=== PATIENT | male | born 1965 | race Caucasian/White ===

== ENCOUNTER → 2016-11-29 | Outpatient (CLI) | payer OTHER ==
[2016-11-29 13:47] LABS: Blood Urea Nitrogen 4 mg/dL (9-20); Non-African American GFR(MDRD) >60 (>60 ml/min/1.73 sqM)
--- NOTE | 2016-11-29 16:21 | CT ---
EXAMINATION TYPE: CT ChestAbdPelvis w con DATE OF EXAM: 11/29/2016 2:55 PM COMPARISON: Prior CT chest abdomen pelvis one October 2016 HISTORY: Patient has no complaints at time of study. Follow up study for known lung CA with brain an d liver mets CT DLP: 538.2 mGycm Automated exposure control for dose reduction was used. CONTRAST: CT scan of the chest, abdomen and pelvis is performed with Oral Contrast and with IV Contrast, patien t injected with 100 mL of Omnipaque 300. FINDINGS: LUNGS: The lung mass in the left upper lobe now measures approximately 6.7 x 4.2 x 5.7 cm where as on prior exam measured approximately 6.7 x 4.5 x 6.1 cm. Nodular density is present in the posterior co stophrenic sulcus measuring approximately 5 to 6 mm axial image 36, along the right lower lobe business operations specialist ior laterally there is a suggestion of a 4 to 5 mm nodule in a subpleural location, axial image 35. MEDIASTINUM: Extensive subcarinal, left hilar adenopathy as well as posterior mediastinal, aorticopul monary window nodes. AP dimension and the subcarinal node is 3.7 cm where as on prior it measured yahir roximately 2.2 cm. Left hilar node AP dimension is 2.4 cm where as on previous was approximately 1.7 cm. Aorticopulmonary window node is new measuring 1.7 cm x 1.5 cm x 2.2 cm. Posterior mediastinal nod e adjacent to the thoracic esophagus measures approximately 1.9 x 1.7 x 3.9 cm and on previous measur ed approximately 1.5 x 1.3 x 2.4 cm. AORTA: No significant abnormality is seen. OTHER: No pleural or pericardial effusion. LIVER/GB: There is a hypodense focus present within the right lobe of the liver which is poorly seen on prior exam measuring approximately 8 to 9 mm which now measures 2 cm it shows some peripheral enha ncement. Additional nodule within the lateral segment of the left lobe was not well-seen on prior but measures approximately 13 mm on current exam. Adjacent to the zach there is 4 definition of a previ ously identified low dense focus. Liver overall shows low density, some questionable abnormal soft ti ssue along the ligamentum teres anteriorly is poorly defined as on prior.. Gallbladder is unremarkabl e. PANCREAS: No significant abnormality is seen. SPLEEN: No significant abnormality is seen. ADRENALS: Small nodule associated with the left adrenal gland was not seen on previous exam and measu res approximately 13 mm. Right adrenal nodule was not seen on previous exam and measures approximatel y 15 mm. KIDNEYS: No significant abnormality is seen. Soft tissue nodule in the posterior retroperitoneum at t he level of the inferior margin of the right kidney measured approximately 3.6 cm in greatest dimensi on on previous exam and now measures approximately 2.8 cm. REPRODUCTIVE ORGANS: Prostate is enlarged, there are associated calcifications. BOWEL: There is a large amount of retained fecal debris in the colon. FREE AIR: No Free Air visible. ASCITES: None seen. URINARY BLADDER: No significant abnormality is seen. PELVIC ADENOPATHY: None visualized. OSSEOUS STRUCTURES: No significant abnormality is seen. IMPRESSION: Mediastinal adenopathy is increased. Liver masses as described have increased in size. Ne w right lower lobe lung nodule suspected. Some interval reduction in the retroperitoneal nodule is lee spected. Some slight interval reduction in size of the patient's left upper lobe lung mass.
== END | disposition home or self-care (01) ==
LOC: RADPROMAIN 12:55
PROVIDERS: ATTEND Internal Medicine Hematology & Oncology
DX: C34.90 Malignant neoplasm of unspecified part of unspecified bronchus or lung (principal); R59.0 Localized enlarged lymph nodes; R91.8 Other nonspecific abnormal finding of lung field; R16.0 Hepatomegaly, not elsewhere classified
CPT/HCPCS: 82565; 84520; 71260; 74177; 36415; Q9967

== ENCOUNTER → 2016-12-05 | Outpatient (CLI) | payer OTHER ==
--- NOTE | 2016-12-05 14:39 | MR ---
MRI brain with and without contrast history: Brain secondary malignancy Multiplanar multisequence and postcontrast images through the brain following 15 cc MultiHance IV cor related to previous exam brain MRI 19 September 2016. Brain planning protocol used Patient's left parietal craniotomy change is again noted. There is some local fluid signal present wi th enhancing rim at the level of the flap, localized swelling. The fluid collection measures approxim ately 4.3 x 2.1 x 4.5 cm both internal and external 2V flat with an external component extending into the subcutaneous tissues inferiorly, this component measures 4.3 cm x 2 cm x 1.5 cm. There is local mass effect on the left parietal row posteriorly, some local gliosis is present adjacent to the mass in the left occipital lobe. The mass measures approximately 6.4 cm x 3.7 cm x 6.2 cm and shows hetero geneous signal, peripheral low signal is compatible with hemosiderin, this extends towards the flap f rom the midline and measures approximately 6.4 cm in greatest dimension. Additional lesion at the kan-white junction in the left parietal lobe is again seen measuring 15 mm in diameter with heterogeneous signal and rim enhancement. Question an additional focus in the left f rontal lobe 9 mm axial image 68 postcontrast. Low signal focus also present along the insula on the l eft measuring approximately 6 mm on T2-weighted sequences axial image 18 not seen definitively on lorena or exam but with some suggestion of some local enhancement. Low signal focus in the left frontal lobe on axial image 50 postcontrast dataset showed enhancement on prior exam and measures 3 to 4 mm. White matter demyelination changes are again seen scattered hyperintensities within the periventricul ar white matter on inversion recovery and T2-weighted sequences. Inflammatory change present in bilateral mastoid air cells. No significant midline shift. No hydrocep halus. IMPRESSION: Metastatic disease, new lesions are suspected as compared to previous exam. There may be a hematoma, abscess, postop seroma at the site of the craniotomy.
== END | disposition home or self-care (01) ==
LOC: RADMRIMAIN 10:31
PROVIDERS: ATTEND Radiology Radiation Oncology
DX: C79.31 Secondary malignant neoplasm of brain (principal)
CPT/HCPCS: 70553; A9577

== ENCOUNTER 2016-12-23 01:44 | Inpatient (IN) | payer OTHER ==
[2016-12-23] MEDS ORDERED: SODIUM CHLORIDE 0.9% 500 ML IV STA ×2 (02:04→03:43)
[2016-12-23] MEDS ORDERED: SODIUM CHLORIDE 0.9% 1,000 ML IV STA (02:04)
--- NOTE | 2016-12-23 02:06 | ED ---
General Adult HPI - General Chief complaint: Altered Mental Status Stated complaint: Confusion Time Seen by Provider: 12/23/16 01:57 Source: patient, RN notes reviewed, old records reviewed Mode of arrival: EMS - History of Present Illness Initial comments: This is a 51-year-old male to the ER for evaluation of altered mental status. Patient does have significant medical history significant for melanoma with multiple medications, multiple treatments, and brain surgery back in June. Patient did just start up Jl, patient is noticing some right hand deformity and loss of control which was something he also noticed when he first had symptoms of his tumor. No fevers. - Related Data Home Medications Medication Instructions Recorded Confirmed ALPRAZolam [Xanax] 0.5 mg PO BID PRN 07/02/16 12/23/16 Hydrocodone/Acetaminophen [[place] 1 tab PO Q4HR PRN 07/02/16 12/23/16 7.5-325] Dronabinol [Marinol] 5 mg PO HS 12/23/16 12/23/16 Ondansetron [Zuplenz] 4 mg PO QID PRN 12/23/16 12/23/16 Pantoprazole [Protonix] 40 mg PO DAILY 12/23/16 12/23/16 Previous Rx's Medication Instructions Recorded levETIRAcetam [Keppra] 750 mg PO Q12HR #60 tab 09/22/16 Allergies Allergy/AdvReac Type Severity Reaction Status Date / Time Penicillins Allergy Unknown Verified 11/29/16 13:36 Childhood Review of Systems ROS Statement: Those systems with pertinent positive or pertinent negative responses have been documented in the HPI. ROS Other: All systems not noted in ROS Statement are negative. 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 Diagnosed 04/27, currently getting radiation tx History of Any Multi-Drug Resistant Organisms: None Reported Past Surgical History: Orthopedic Surgery Additional Past Surgical History / Comment(s): left arm fx, digits on left hand- injury required surgery, craniotomy 06/12/16 Past Anesthesia/Blood Transfusion Reactions: No Reported Reaction Past Psychological History: Anxiety Additional Psychological History / Comment(s): claustrophobia Smoking Status: Former smoker Past Alcohol Use History: None Reported Additional Past Alcohol Use History / Comment(s): quit smoking 05/09/16, smoked since age 16, smoked 1 -1 1/2PPD Past Drug Use History: None Reported - Past Family History Father Family Medical History: Cancer Additional Family Medical History / Comment(s): Skin CA Mother History Unknown: Yes Family Medical History: Cancer Additional Family Medical History / Comment(s): breast Brother(s) Family Medical History: Cancer Additional Family Medical History / Comment(s): colon, testicular General Exam General appearance: alert, in no apparent distress Head exam: Present: atraumatic, normocephalic, normal inspection Eye exam: Present: normal appearance, PERRL, EOMI. Absent: scleral icterus, conjunctival injection, periorbital swelling ENT exam: Present: normal exam, mucous membranes moist Neck exam: Present: normal inspection. Absent: tenderness, meningismus, lymphadenopathy Respiratory exam: Present: normal lung sounds bilaterally. Absent: respiratory distress, wheezes, rales, rhonchi, stridor Cardiovascular Exam: Present: regular rate, normal rhythm, normal heart sounds. Absent: systolic murmur, diastolic murmur, rubs, gallop, clicks GI/Abdominal exam: Present: soft, normal bowel sounds. Absent: distended, tenderness, guarding, rebound, rigid Extremities exam: Present: normal inspection, full ROM, normal capillary refill. Absent: tenderness, pedal edema, joint swelling, calf tenderness Back exam: Present: normal inspection Neurological exam: Present: alert, oriented X3, CN II-XII intact Psychiatric exam: Present: normal affect, normal mood Skin exam: Present: warm, dry, intact, normal color. Absent: rash Course Vital Signs 12/23/16 01:51 Temperature 97.7 F Pulse Rate 77 Respiratory 18 Rate Blood Pressure 128/88 O2 Sat by Pulse 96 Oximetry - Reevaluation(s) Reevaluation #1: 12/23/16 03:24 Patient thinks his symptoms may be worsening, right upper extremity weakness and debility Medical Decision Making - Medical Decision Making 51 year with no neurological complaint, history of brain metastases, history of melanoma, history of brain surgery, patient does seem to have increased metastasis. Just started up Opdivo - Lab Data Result diagrams: 12/23/16 02:45 02/11/17 02:45 Lab Results 12/23/16 12/23/16 12/23/16 Range/Units 02:45 02:45 03:20 WBC 6.4 (3.8-10.6) k/uL RBC 3.58 L (4.30-5.90) m/uL Hgb 11.0 L (13.0-17.5) gm/dL Hct 35.1 L (39.0-53.0) % MCV 98.2 (80.0-100.0) fL MCH 30.8 (25.0-35.0) pg MCHC 31.3 (31.0-37.0) g/dL RDW 16.6 H (11.5-15.5) % Plt Count 443 (150-450) k/uL Neutrophils % 72 % Lymphocytes % 18 % Monocytes % 6 % Eosinophils % 2 % Basophils % 0 % Neutrophils # 4.7 (1.3-7.7) k/uL Lymphocytes # 1.2 (1.0-4.8) k/uL Monocytes # 0.4 (0-1.0) k/uL Eosinophils # 0.1 (0-0.7) k/uL Basophils # 0.0 (0-0.2) k/uL Hypochromasia Slight Anisocytosis Slight Macrocytosis Slight Sodium 143 (137-145) mmol/L Potassium 3.8 (3.5-5.1) mmol/L Chloride 106 (98-107) mmol/L Carbon Dioxide 25 (22-30) mmol/L Anion Gap 12 mmol/L BUN 8 L (9-20) mg/dL Creatinine 0.71 (0.66-1.25) mg/dL Est GFR (MDRD) Af Amer >60 (>60 ml/min/1.73 sqM) Est GFR (MDRD) Non-Af >60 (>60 ml/min/1.73 sqM) Glucose 92 (74-99) mg/dL Calcium 9.1 (8.4-10.2) mg/dL Phosphorus 3.5 (2.5-4.5) mg/dL Magnesium 1.2 L (1.6-2.3) mg/dL Total Bilirubin 0.4 (0.2-1.3) mg/dL AST 13 L (17-59) U/L ALT 27 (21-72) U/L Alkaline Phosphatase 78 (38-126) U/L Total Protein 6.8 (6.3-8.2) g/dL Albumin 3.5 (3.5-5.0) g/dL Urine Color Yellow Urine Appearance Clear (Clear) Urine pH 6.5 (5.0-8.0) Ur Specific [place] 1.016 (1.001-1.035) Urine Protein Negative (Negative) Urine Glucose (UA) Negative (Negative) Urine Ketones Negative (Negative) Urine Blood Negative (Negative) Urine Nitrate Negative (Negative) Urine Bilirubin Negative (Negative) Urine Urobilinogen <2.0 (<2.0) mg/dL Ur Leukocyte Esterase Negative (Negative) - Radiology Data Radiology results: report reviewed (CT brain shows further metastatic disease, swelling), image reviewed Disposition Clinical Impression: Metabolic encephalopathy, Brain tumor, Brain metastases, Hypomagnesemia Disposition: ADMITTED IP TO THIS [facility] Condition: Fair Referrals: Lester Padgett MD [Primary Care Provider] - 1-2 days
--- NOTE | 2016-12-23 02:37 | CT ---
EXAMINATION TYPE: CT brain wo con DATE OF EXAM: 12/23/2016 2:22 AM COMPARISON: 09/21/2016 HISTORY: weakness, confusion, history of secondary brain CA, and craniotomy CT DLP: 1116.00 mGycm Automated exposure control for dose reduction was used. FINDINGS: There is a left posterior temporal craniotomy defect. There is a 5 cm area of hypodensity involving t he left posterior temporal lobe and left posterior parietal lobe. There is no midline shift. There is no sign of intracranial hemorrhage. There is a 2 cm area of mild hypodensity in the left posterior f rontal lobe kan-white matter junction. There is a 4 x 3 cm area of hypodensity involving the left occipital lobe with some effacement of the occipital horn left lateral ventricle. The cerebellum is intact. IMPRESSION: There is white matter hypodensity in the left posterior temporal lobe and left posterior parietal lob e consistent with edema and metastatic disease. This appears similar to old exam. There is a central 1 cm area of higher attenuation that could be active tumor in the left posterior parietal lobe that a ppears new compared to old exam. There is also some edema in the left occipital lobe also consistent with metastatic disease. There is a subtle 2 cm area of hypodensity in the left posterior frontal lobe that appears new compared to ol d exam and could be an additional and new focus of metastatic disease. Exam is limited by the lack of IV contrast.
[2016-12-23 03:10] LABS: ALT 27 U/L (21-72); AST 13 U/L (17-59); Alkaline Phosphatase 78 U/L (38-126); Anion Gap 12 mmol/L; Blood Urea Nitrogen 8 mg/dL (9-20); Calcium 9.1 mg/dL (8.4-10.2); Carbon Dioxide 25 mmol/L (22-30); Chloride 106 mmol/L (98-107); Glucose 92 mg/dL (74-99); Magnesium 1.2 mg/dL (1.6-2.3); Non-African American GFR(MDRD) >60 (>60 ml/min/1.73 sqM); Phosphorous 3.5 mg/dL (2.5-4.5); Potassium 3.8 mmol/L (3.5-5.1); Sodium 143 mmol/L (137-145); Total Bilirubin 0.4 mg/dL (0.2-1.3); Total Protein 6.8 g/dL (6.3-8.2)
[2016-12-23 03:19] LABS: INR 1.2 (<1.1); Partial Thromboplastin Time 32.8 sec (22.0-30.0); Prothrombin Time 11.6 sec (9.0-12.0)
[2016-12-23 03:20] LABS: Anisocytosis Slight; Basophils % (A) 0 %; CH 30.6; CHCM 31.1; Eosinophils # (A) 0.1 k/uL (0-0.7); Eosinophils % (A) 2 %; HCT 35.1 % (39.0-53.0); HDW 2.91; Hypochromasia Slight; Luc # (Auto) 0.11; Luc % (Auto) 2; Lymphocytes # (A) 1.2 k/uL (1.0-4.8); Lymphocytes % (A) 18 %; MCH 30.8 pg (25.0-35.0); MCHC 31.3 g/dL (31.0-37.0); MCV 98.2 fL (80.0-100.0); Macrocytosis Slight; Mean Platelet Volume 7.2; Monocytes # (A) 0.4 k/uL (0-1.0); Monocytes % (A) 6 %; Neutrophils # (A) 4.7 k/uL (1.3-7.7); Neutrophils % (A) 72 %; RBC 3.58 m/uL (4.30-5.90); RDW 16.6 % (11.5-15.5); WBC 6.4 k/uL (3.8-10.6); WBC (Perox) 6.62
[2016-12-23 03:33] LABS: Creatine Kinase 32 U/L (55-170)
[2016-12-23 03:33] LABS: Appearance,Urine Clear (Clear); Bilirubin,Urine Negative (Negative); Glucose,Urine (UA) Negative (Negative); Ketones,Urine Negative (Negative); Leukocyte Esterase,Urine Negative (Negative); Nitrite,Urine Negative (Negative); PH, Urine 6.5 (5.0-8.0); Protein,Urine Negative (Negative); Specific Gravity,Urine 1.016 (1.001-1.035); UA Billing (MACRO vs. MICRO) CHEM; Urobilinogen,Urine <2.0 mg/dL (<2.0)
[2016-12-23] MEDS ORDERED: SODIUM CHLORIDE 0.9% 1,000 ML IV ONE (03:42)
[2016-12-23] MEDS ORDERED: DEXAMETHASONE SOD PHOSPHATE 10 MG/ML 1 ML VIAL IV STA (03:43)
[2016-12-23] MEDS ORDERED: DEXAMETHASONE SOD PHOSPHATE 4 MG/ML 1 ML VIAL IV PRN (03:43)
[2016-12-23 03:45] LABS: Creatine Kinase MB <0.2 ng/mL (0.0-2.4); Troponin I <0.012 ng/mL (0.000-0.034)
[2016-12-23] MEDS: MAGNESIUM SULFATE-D5W PMX 1 GM in DEXTROSE/WATER 1 100ML.BAG IVPB SCH ×4 (04:14→10:24)
[2016-12-23] MEDS ORDERED: HYDROcodone/APAP 7.5-325MG 1 EACH TAB PO ONE (04:22)
[2016-12-23] MEDS ORDERED: HYDROcodone/APAP 7.5-325MG 1 EACH TAB PO PRN (09:25)
[2016-12-23] MEDS ORDERED: ALPRAZolam 0.5 MG TAB PO PRN (09:25)
[2016-12-23] MEDS ORDERED: ONDANSETRON 4 MG TAB PO PRN (09:25)
[2016-12-23 11:07] VITALS: BMI 19.0
--- NOTE | 2016-12-23 11:15 | HP ---
DATE OF ADMISSION: HISTORY AND PHYSICAL AND DISCHARGE SUMMARY This 51-year-old gentleman came into ER with altered mental status. Patient was diagnosed with squamous cell lung cancer, left upper lobe. The patient was actually having significant weakness in the right lower limb. Patient's present strength in the right lower limb 5 x 5. Patient states his right lower limb weakness completely resolved. Denied any fevers or chills. No other focal weakness. Denied any abdominal pain, nausea, vomiting. Denied any visual problems. Denied any speech problems. Also, right lower limb weakness and confusion completely resolved after starting on Decadron and patient had a CT of the head, which showed multiple lesions in the brain most of them in the left parietal lobe, left occipital lobe and left temporal lobe. The left temporal lobe lesion appears to be new and even the previous ones appear to have significant vasogenic edema. Patient follows with Dr. Padgett for squamous cell lung cancer and patient completed chemotherapy and is on ( ) agents for lung cancer. As patient's symptoms completely resolved, will let Oncology evaluate the patient to make a plan for his metastatic lesions to the brain and the patient will be discharged on weaning dose of Decadron if cleared by Oncology today. Patient does not have any signs or symptoms of sepsis at this point of time. REVIEW OF SYSTEMS: CONSTITUTIONAL: No fever, no malaise, no fatigue. HEENT: No recent visual problems or hearing problems. Denied any sore throat. CARDIOVASCULAR: No chest pain, orthopnea, PND, no palpitations, no syncope. PULMONARY: No shortness of breath, no cough, no hemoptysis. GASTROINTESTINAL: No diarrhea, no nausea, no vomiting, no abdominal pain. Normoactive bowel sounds. NEUROLOGICAL: As described in HPI. HEMATOLOGICAL: Denies any bleeding or petechiae. GENITOURINARY: Denies any burning micturition, frequency, or urgency. MUSCULOSKELETAL/RHEUMATOLOGICAL: Denies any joint pain, swelling, or any muscle pain. ENDOCRINE: Denies any polyuria or polydipsia. The rest of the 14 point review of systems is negative. HOME MEDICATIONS: 1. Alprazolam. 2. Acetaminophen. 3. Hydrocodone. 4. Dronabinol. 5. Ondansetron. 6. Protonix. 7. Levetiracetam. Patient was started on levetiracetam during his previous hospitalization when he presented with seizures. PAST MEDICAL HISTORY: Significant for skin cancer, lung cancer, metastasis to the brain, squamous lung cancer. SOCIAL HISTORY: Quit smoking since his diagnosis of lung cancer, used to smoke 1-1/2 packs per day. Denied any alcohol abuse or any drug abuse. FAMILY HISTORY: Father had skin cancer. Mother had breast cancer. Brother had testicular and colon cancer. PHYSICAL EXAMINATION: VITAL SIGNS: Temperature 98.2, pulse of 74, respiratory rate of 16, blood pressure is 120/65, saturating at 97% on room air. GENERAL: The patient is alert and oriented x3, not in any acute distress. Well developed, well nourished. HEENT: Pupils are round and equally reacting to light. EOMI. No scleral icterus. No conjunctival pallor. Normocephalic, atraumatic. No pharyngeal erythema. No thyromegaly. CARDIOVASCULAR: S1 and S2 present. No murmurs, rubs, or gallops. PULMONARY: Chest is clear to auscultation, no wheezing or crackles. ABDOMEN: Soft, nontender, nondistended, normoactive bowel sounds. No palpable organomegaly. MUSCULOSKELETAL: No joint swelling or deformity. EXTREMITIES: No cyanosis, clubbing, or pedal edema. NEUROLOGICAL: Gross neurological examination did not reveal any focal deficits. SKIN: No rashes. LABORATORY DATA: CBC, CMP essentially within normal limits. UA is negative. I do not have a chest x-ray available at this point of time. Right lower limb weakness. Patient's brain lesions are in the left parietal, occipital and temporal lobes. FINAL DIAGNOSES: 1. Right lower limb weakness ( ) to metastatic lesions to the brain significant improvement with Decadron and probably improvement of ( ) with Decadron. Patient is clinically doing well. He will be discharged today and further plans regarding radiation therapy versus any further treatment for brain metastatic disease as per Oncology. 2. Acute toxic metabolic encephalopathy secondary to vasogenic edema and metastatic disease to the brain. 3. 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 4. Left upper lobe lung cancer squamous cell carcinoma. If cleared by Oncology, patient will be discharged on tapering doses of Decadron with appropriate follow ups.
[2016-12-23] MEDS: DEXAMETHASONE SOD PHOSPHATE 10 MG/ML 1 ML VIAL IV SCH ×3 (11:30→18:03)
[2016-12-23 16:18] VITALS: BP 112/66; PULSE 98; RESP 18; TEMP 98
--- NOTE | 2016-12-23 20:16 | CONS ---
DATE OF CONSULTATION: 12/23/2016 REASON FOR CONSULTATION: Lung cancer. CHIEF COMPLAINT: Shakiness. Jerome is a very pleasant 51-year-old gentleman very well-known to our practice, has been under the care of Dr. Padgett. The patient was diagnosed with squamous cell carcinoma of the lung in April 2016, when he presented with headaches and diplopia. His CT scan of the brain revealed 6 cm mass in the left cerebral hemisphere. The patient was transferred to [facility] when he was seen by Dr. Fuller and he underwent craniotomy and resection of the tumor on June 12, 2016, revealing poorly differentiated squamous cell carcinoma. The patient also was found to have further imaging studies, including CT scan of the chest, abdomen, and pelvis, revealing left upper lobe mass and a PET scan done as well revealed significant uptake in the left upper mass along with mediastinum node, and a 3.2 cm lesion near the lower pole of the right kidney. The CT guided biopsy of the left upper lobe mass was also positive for poorly differentiated squamous cell carcinoma. At that time his brain MRI did not reveal any evidence of brain metastases. After he recovered from his craniotomy, the patient unfortunately developed progressive the right upper quadrant pain and a repeat CT scan on June 23, 2016, revealed multiple liver metastases. The patient was started on systemic chemotherapy with a combination of carboplatin and ( ) in July 2016. It was the initial stage of his disease. He completed treatment in October of 2016. Unfortunately in November 2016, repeat CT scan revealed further disease progression and also repeat brain MRI on December 05 revealed further progression of his brain metastases with new brain lesion. The plan was to refer the patient back for further whole brain radiation therapy and also the plan was to start him on second line systemic treatment with immunotherapy with utilization of Opdivo. In fact, he received his first Opdivo dose on December 15, 2016. The patient presented to the emergency department yesterday with progressive weakness and shakiness in his right arm. He did have a brain CT scan done in the emergency department revealing left posterior temporal lobe and left posterior parietal lobe metastatic disease and vasogenic edema; however, was stable compared to prior CT scan. Also there was some edema in the left occipital lobe consistent with metastatic disease with a subtle 2 cm area of hypodensity in the left posterior frontal lobe, which appears to be new. The patient was started on higher dose Decadron and he ended up being admitted to the hospital and his symptoms have significantly improved by this morning. He denies any nausea or vomiting. He denies any double vision. He is eating well. His weight has been relatively stable. No melena, hematochezia, hematuria, hemoptysis, hematemesis or epistaxis. PAST MEDICAL HISTORY: In addition to what is stated above, he had skin cancer; otherwise negative. SOCIAL HISTORY: He smoked 1-1/2 packs of cigarettes up to the day he was diagnosed with lung cancer in April 2016. No alcohol abuse or substance abuse. FAMILY HISTORY: His father had skin cancer. His mother had breast cancer. He had a brother with testicular cancer and colon cancer. REVIEW OF SYSTEMS: As stated above in the history of present illness, otherwise negative. ALLERGIES: PENICILLIN. MEDICATIONS: 1. [place] 7.5/325 every 4 hours as needed. 2. Xanax 0.5 mg b.i.d. as needed. 3. Decadron 6 mg IV every 6 hours. 4. Marinol 5 mg at bedtime. 5. Keppra 750 mg every 12 hours. 6. Zofran 4 mg q.i.d. 7. Protonix 40 mg p.o. daily. PHYSICAL EXAMINATION: GENERAL: He is alert, oriented x3. He does not appear to be in distress at this time. VITAL SIGNS: Temperature 98.2, afebrile, pulse is 74 and regular, respiration 18, blood pressure 120/65. Pulse ox 97% on room air. HEENT: Normocephalic, atraumatic. No obvious icterus. NECK: Supple. No jugular. CHEST: Equal expansion bilaterally. LUNGS: Clear to auscultation and percussion. HEART: Regular rate and rhythm. ABDOMEN: Soft. No apparent tenderness. Bowel sounds present. No ascites. The liver is enlarged. EXTREMITIES: No edema. SKIN: No significant bruises, ecchymosis or petechia. LYMPHATICS: No peripherally enlarged cervical, supraclavicular lymphadenopathy. MUSCULOSKELETAL: Moving all extremities appropriately. He does have apparent motor deficits in the right upper extremity and right lower extremity and he has tremor of the right upper extremity and difficulty with coordination. LABORATORY DATA: WBC 6.4, hemoglobin 11.0, hematocrit 35.1, platelets 443, sodium 143, potassium 3.8, chloride 105, CO2 is 25, BUN is 8, creatinine 0.5, AST is 13, ALT 27, alkaline phosphatase 78. IMPRESSION: 1. Progressive neurological symptoms, likely related to his new brain metastases. His symptoms improved significantly. It is likely related to new progression of his new brain metastases. He initially had a solitary brain lesion but recent brain MRI revealed new brain lesions consistent with brain metastases. 2. Squamous cell carcinoma of the lung with recent progression as well. RECOMMENDATIONS: The patient already started on second line treatment with single agent Opdivo. Since his symptoms improved with steroids, I would recommend to continue with Decadron. May switch to oral Decadron with tapering dose to keep him on the lowest possible dose of steroids until he follows up with Dr. Padgtet in the office. He has already been seen by radiation therapy and plan to undergo possible palliative whole brain radiation therapy. Since the patient is neurologically stable from an oncology standpoint, he could be discharged home. The above was discussed with the patient. I have answered all his questions to his satisfaction. Thank you very much for asking me to participate in the care of this gentleman.
[2016-12-23] MEDS ORDERED: DRONABINOL 2.5 MG CAP PO SCH (21:00)
[2016-12-24] MEDS ORDERED: PANTOPRAZOLE 40 MG TABLET PO SCH (07:30)
== END 2016-12-23 18:20 | disposition home or self-care (01) | DRG 54 ==
LOC: EC 01:44 → SUPCPDRO 01:44 → 5ONC 03:44
PROVIDERS: ADMIT Hospitalist; ATTEND Hospitalist
DX: C79.31 Secondary malignant neoplasm of brain (principal); G93.6 Cerebral edema; G92 Toxic encephalopathy; C78.7 Secondary malignant neoplasm of liver and intrahepatic bile duct; E83.42 Hypomagnesemia; C34.12 Malignant neoplasm of upper lobe, left bronchus or lung; G40.909 Epilepsy, unspecified, not intractable, without status epilepticus; F40.240 Claustrophobia; F41.9 Anxiety disorder, unspecified; Z85.820 Personal history of malignant melanoma of skin; Z87.891 Personal history of nicotine dependence; Z92.21 Personal history of antineoplastic chemotherapy; Z79.899 Other long term (current) drug therapy
CPT/HCPCS: 36415; 70450; 80053; 81003; 82550; 82553; 83735; 84100; 84484; 85025; 85610; 85730; 87086; 93005; 96361; 96365; 96375; 99285

== ENCOUNTER → 2017-01-08 | Outpatient (CLI) | payer OTHER ==
--- NOTE | 2017-01-09 07:44 | MR ---
EXAMINATION TYPE: MR brain wo/w con DATE OF EXAM: 01/08/2017 10:29 PM COMPARISON: 12/05/2016 HISTORY: Brain mets from lung ca, hx of brain mass removed Jun 2016 CONTRAST: Performed utilizing 15 mL intravenous MultiHance gadolinium contrast. TECHNIQUE: Multiplanar, multiecho imaging on a 3.0 Johanny magnet is performed through the brain. Stud y is performed within 24 hours of arrival to the hospital. The craniovertebral junction is normal. The pituitary is normal. Diffusion-weighted imaging is performed. There is signal drop-off in the left occipital lobe mass.. There is signal drop-off within the left posterior parietal region mass. Left occipital lobe mass measures 4.2 transverse by 3.4 cm AP by 5.5 cm cranial caudal dimension. Thi s is a heterogenous appearance and is slightly hyperintense in relation to the brain on T2-weighted s equences. This is compressing the posterior portion of the left occipital horn lateral ventricle. Mas s effect is evident on the brain. No midline shift is evident. There is a heterogenous mass in the left parietal lobe measuring estimated 2.4 cm AP by 2.3 cm transv erse by 2.5 cm craniocaudal dimension. This has surrounding vasogenic edema. There is a 0.8 craniocaudal by 0.8 transverse by 1.3 cm AP dimension lesion along the medial aspect o f the proximal left temporal lobe. This has subtle wall enhancement. Just posterior within the parietal-occipital junction region along the cortex is a similar appearing heterogenous hypointense lesion measuring 1.4 cm transverse by 1.0 cm AP. The craniocaudal dimension is not well-defined. There is a small 0.9 cm mixed signal area in the cortical region of the posterior left frontal lobe. This has some adjacent vasogenic edema. The lesion in the left occipital lobe appears more homogenous with slight central enhancement on the postcontrast images. The left parietal lesion has irregular ring enhancement with similar enhancement in the posterior left parietal region. There is subtle enhancement along the medial left temporal lo be lesion the left posterior frontal lesion enhancement suggests this is larger than on the noncontra st images. On inversion recovery weighted sequences there are multiple punctate subcortical and deep white matte r as well as periventricular white matter changes. These subcentimeter lesions are nonspecific. Given the additional findings, metastasis is not excluded. Microvascular ischemic change vasculitis among other etiologies should be considered. COMPARISON: 12/05/2016. The occipital lobe lesion may be slightly larger. Additional described lesions are readily apparent on the current examination. Findings can be compatible with metastasis with int erval progression. No ventricular dilatation is evident. There is some sulcal effacement adjacent to the metastatic lesi ons. Remaining sulci are normal. Some fluid is within the right mastoid air cells. Mild right mastoid itis may remain present. IMPRESSIONS: 1. Progression in size of metastatic lesions. 2. Increasing vasogenic edema of the left parietal lesion.
== END | disposition home or self-care (01) ==
LOC: RADMRIMAIN 21:12
PROVIDERS: ATTEND Radiology Radiation Oncology
DX: C79.31 Secondary malignant neoplasm of brain (principal); C34.90 Malignant neoplasm of unspecified part of unspecified bronchus or lung; G93.9 Disorder of brain, unspecified
CPT/HCPCS: 70553; A9577

== ENCOUNTER 2017-01-26 19:01 | Emergency (ER) | payer OTHER ==
[2017-01-26 19:30] VITALS: TEMP 98
[2017-01-26] MEDS ORDERED: DEXAMETHASONE SOD PHOSPHATE 10 MG/ML 1 ML VIAL IV STA (19:40)
[2017-01-26 20:10] LABS: Basophils % (A) 0 %; CH 33.1; CHCM 32.7; Eosinophils % (A) 0 %; HCT 41.7 % (39.0-53.0); HDW 2.34; HGB 13.6 gm/dL (13.0-17.5); Luc # (Auto) 0.08; Luc % (Auto) 1; Lymphocytes # (A) 0.6 k/uL (1.0-4.8); Lymphocytes % (A) 9 %; MCHC 32.6 g/dL (31.0-37.0); MCV 101.4 fL (80.0-100.0); Macrocytosis Slight; Monocytes # (A) 0.3 k/uL (0-1.0); Monocytes % (A) 4 %; Neutrophils % (A) 86 %; RBC 4.11 m/uL (4.30-5.90); RDW 15.6 % (11.5-15.5)
[2017-01-26 20:20] LABS: ALT 25 U/L (21-72); AST 12 U/L (17-59); Alkaline Phosphatase 49 U/L (38-126); Anion Gap 9 mmol/L; Blood Urea Nitrogen 17 mg/dL (9-20); Calcium 9.2 mg/dL (8.4-10.2); Carbon Dioxide 24 mmol/L (22-30); Chloride 105 mmol/L (98-107); Glucose 102 mg/dL (74-99); Non-African American GFR(MDRD) >60 (>60 ml/min/1.73 sqM); Potassium 4.1 mmol/L (3.5-5.1); Sodium 138 mmol/L (137-145); Total Bilirubin 0.4 mg/dL (0.2-1.3); Total Protein 6.8 g/dL (6.3-8.2)
--- NOTE | 2017-01-26 20:41 | CT ---
EXAMINATION TYPE: CT brain wo con DATE OF EXAM: 01/26/2017 8:32 PM COMPARISON: 12/23/2016 HISTORY: Seizure activity today. Lung cancer with mets to brain. Currently undergoing radiation treat ment. CT DLP: 1207.00 mGycm Automated exposure control for dose reduction was used. FINDINGS: There is a 2 cm ring high density lesion in the left posterior temporal lobe. There is a lobulated 3 cm lesion in the left parietal lobe with irregular high attenuation and adjacent white matter edema. There is left parietal craniotomy defect noted. There is patchy edema involving the left posterior pa rietal lobe and left occipital lobe. There is some effacement of the occipital horn of the left later al ventricle. There is a 4 x 3 cm area of masslike density involving the left occipital lobe convexit y. There is some mild subcutaneous cortical high attenuation in the left posterior frontal lobe conve xity. IMPRESSION: There are multiple areas of abnormal increased attenuation in the left parietal lobe and left posteri or temporal lobe that could relate to acute or subacute tumor hemorrhage in this patient with eviden ce of intracranial metastatic disease. This appears new compared to old exam. There is left occipital lobe convexity mass with effacement of the occipital horn left lateral ventricle that is the same or slightly worse than last CT scan. The left parietal lobe white matter edema overall is slightly wors e than last CT scan.
--- NOTE | 2017-01-26 21:11 | ED ---
Seizure HPI - General Chief Complaint: Seizure Stated Complaint: seizure Time Seen by Provider: 01/26/17 19:10 Source: patient, family, RN notes reviewed Mode of arrival: EMS Limitations: no limitations - History of Present Illness Initial Comments: 51-year-old male presents emergency Department with chief complaint seizure. Patient has primary lung cancer with metastases to the brain and liver. Patient had a prior surgery to his brain secondary to a mass. Patient has recurrent seizures secondary to increase pressure. Patient states that his steroids have been reduced lately. Patient still undergoing radiation treatment. Patient states that he has no complaints at this time. Seizure was witnessed by family 2-3 minutes long. Patient states he did bite his tongue. Patient's oncologist is Dr. Miller, radiation oncologist is Dr. Kenny and his prior neurosurgeon is Dr. Neil - Related Data Home Medications Medication Instructions Recorded Confirmed ALPRAZolam [Xanax] 0.5 mg PO BID PRN 07/02/16 01/26/17 Hydrocodone/Acetaminophen [[place] 1 tab PO Q4HR PRN 07/02/16 01/26/17 7.5-325] Dronabinol 10 mg PO HS 12/23/16 01/26/17 Ondansetron [Zuplenz] 4 mg PO QID PRN 12/23/16 01/26/17 Slow-Mag 119mg/71.5mg 1 tab PO BID 12/23/16 01/26/17 levETIRAcetam [Keppra] 750 mg PO Q12H 12/23/16 01/26/17 Allergies Allergy/AdvReac Type Severity Reaction Status Date / Time Penicillins Allergy Unknown Verified 01/26/17 19:30 Childhood Review of Systems ROS Statement: Those systems with pertinent positive or pertinent negative responses have been documented in the HPI. ROS Other: All systems not noted in ROS Statement are negative. 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 Diagnosed 04/27, currently getting radiation tx History of Any Multi-Drug Resistant Organisms: None Reported Past Surgical History: Orthopedic Surgery Additional Past Surgical History / Comment(s): left arm fx, digits on left hand- injury required surgery, craniotomy 06/12/16 Past Anesthesia/Blood Transfusion Reactions: No Reported Reaction Past Psychological History: Anxiety Additional Psychological History / Comment(s): claustrophobia Smoking Status: Former smoker Past Alcohol Use History: None Reported Additional Past Alcohol Use History / Comment(s): quit smoking 05/09/16, smoked since age 16, smoked 1 -1 1/2PPD Past Drug Use History: None Reported - Past Family History Father Family Medical History: Cancer Additional Family Medical History / Comment(s): Skin CA Mother History Unknown: Yes Family Medical History: Cancer Additional Family Medical History / Comment(s): breast Brother(s) Family Medical History: Cancer Additional Family Medical History / Comment(s): colon, testicular General Exam Limitations: no limitations General appearance: alert, in no apparent distress Head exam: Present: atraumatic, normocephalic. Absent: normal inspection (Old surgical scar noted) Eye exam: Present: normal appearance, PERRL, EOMI. Absent: scleral icterus, conjunctival injection, periorbital swelling ENT exam: Present: normal exam, normal oropharynx, mucous membranes moist, TM's normal bilaterally, normal external ear exam Neck exam: Present: normal inspection, full ROM. Absent: tenderness, meningismus, lymphadenopathy Respiratory exam: Present: normal lung sounds bilaterally. Absent: respiratory distress, wheezes, rales, rhonchi, stridor Cardiovascular Exam: Present: regular rate, normal rhythm, normal heart sounds. Absent: systolic murmur, diastolic murmur, rubs, gallop, clicks GI/Abdominal exam: Present: soft, normal bowel sounds. Absent: distended, tenderness, guarding, rebound, rigid Neurological exam: Present: alert, oriented X3, CN II-XII intact, reflexes normal. Absent: motor sensory deficit Skin exam: Present: warm, dry, intact, normal color. Absent: rash Course Vital Signs 01/26/17 01/26/17 19:25 20:50 Temperature 98 F Pulse Rate 88 78 Respiratory 18 16 Rate Blood Pressure 105/71 O2 Sat by Pulse 95 100 Oximetry Medical Decision Making - Medical Decision Making We did contact his oncologist who recommends patient be transferred. [facility] be transferred to [facility] for further treatment. Case discussed with [facility] who accepts transfer - Lab Data Result diagrams: 01/26/17 19:59 01/26/17 19:59 Lab Results 01/26/17 01/26/17 Range/Units 19:59 19:59 WBC 7.0 (3.8-10.6) k/uL RBC 4.11 L (4.30-5.90) m/uL Hgb 13.6 (13.0-17.5) gm/dL Hct 41.7 (39.0-53.0) % MCV 101.4 H (80.0-100.0) fL MCH 33.0 (25.0-35.0) pg MCHC 32.6 (31.0-37.0) g/dL RDW 15.6 H (11.5-15.5) % Plt Count 274 (150-450) k/uL Neutrophils % 86 % Lymphocytes % 9 % Monocytes % 4 % Eosinophils % 0 % Basophils % 0 % Neutrophils # 6.0 (1.3-7.7) k/uL Lymphocytes # 0.6 L (1.0-4.8) k/uL Monocytes # 0.3 (0-1.0) k/uL Eosinophils # 0.0 (0-0.7) k/uL Basophils # 0.0 (0-0.2) k/uL Macrocytosis Slight Sodium 138 (137-145) mmol/L Potassium 4.1 (3.5-5.1) mmol/L Chloride 105 (98-107) mmol/L Carbon Dioxide 24 (22-30) mmol/L Anion Gap 9 mmol/L BUN 17 (9-20) mg/dL Creatinine 0.74 (0.66-1.25) mg/dL Est GFR (MDRD) Af Amer >60 (>60 ml/min/1.73 sqM) Est GFR (MDRD) Non-Af >60 (>60 ml/min/1.73 sqM) Glucose 102 H (74-99) mg/dL Calcium 9.2 (8.4-10.2) mg/dL Total Bilirubin 0.4 (0.2-1.3) mg/dL AST 12 L (17-59) U/L ALT 25 (21-72) U/L Alkaline Phosphatase 49 (38-126) U/L Total Protein 6.8 (6.3-8.2) g/dL Albumin 3.8 (3.5-5.0) g/dL Disposition Clinical Impression: Seizure, Brain metastasis Disposition: OTHER INSTITUTION NOT DEFINED Time of Disposition: 21:10 - Out of Hospital Transfer - Req. Specs Out of Hospital Transfer - Requested Specifics: Other [facility] ( [facility])
[2017-01-26 21:29] VITALS: BP 108/75; PULSE 74; RESP 14
[2017-01-26] MEDS ORDERED: MORPHINE SULFATE 4 MG/ML SYRINGE IVP STA (22:05)
[2017-01-26] MEDS ORDERED: ONDANSETRON 4 MG/2 ML VIAL IVP STA (22:05)
== END 2017-01-26 22:46 | disposition other institution (70) ==
LOC: EC 19:01
DX: G40.909 Epilepsy, unspecified, not intractable, without status epilepticus (principal); C79.31 Secondary malignant neoplasm of brain; C34.90 Malignant neoplasm of unspecified part of unspecified bronchus or lung; C78.7 Secondary malignant neoplasm of liver and intrahepatic bile duct; C77.1 Secondary and unspecified malignant neoplasm of intrathoracic lymph nodes; C79.00 Secondary malignant neoplasm of unspecified kidney and renal pelvis; F41.9 Anxiety disorder, unspecified; Z79.899 Other long term (current) drug therapy; Z88.0 Allergy status to penicillin; Z87.891 Personal history of nicotine dependence
CPT/HCPCS: 36415; 93005; 80053; 85025; 70450; 99285; 96374; 96375 ×2; J2270; J1100; J2405

== ENCOUNTER → 2017-02-19 | Outpatient (CLI) | payer OTHER ==
--- NOTE | 2017-02-19 12:45 | XR ---
EXAMINATION TYPE: XR chest 2V DATE OF EXAM: 02/19/2017 12:39 PM COMPARISON: 09/20/2016 TECHNIQUE: PA and lateral views submitted. HISTORY: Cough and congestion FINDINGS: The lungs are clear and there is no pneumothorax, pleural effusion, or focal pneumonia[facility] Large left upper lobe lung mass stable. IMPRESSION: 1. No acute process.
== END ==
LOC: RADXRMAIN 12:20
PROVIDERS: ATTEND Internal Medicine Hematology & Oncology
DX: C34.90 Malignant neoplasm of unspecified part of unspecified bronchus or lung (principal); R05 Cough
CPT/HCPCS: 71020

== ENCOUNTER 2017-02-26 23:00 | Emergency (ER) | payer OTHER ==
[2017-02-26 23:14] VITALS: RESP 16; TEMP 99.2
[2017-02-26] MEDS ORDERED: LORazepam 2 MG/ML SYRINGE IV STA (23:17)
[2017-02-26 23:32] LABS: Glucose,Whole Blood 100 mg/dL (75-99)
--- NOTE | 2017-02-26 23:42 | ED ---
Seizure HPI - General Chief Complaint: Seizure Stated Complaint: Seizure Time Seen by Provider: 02/26/17 23:08 Source: patient, EMS Mode of arrival: EMS Limitations: no limitations - History of Present Illness Initial Comments: This 51-year-old white male presents by EMS for a seizure. He does not remember the incident but his relates that he had a approximately 2 minute generalized seizure. There was no injuries. He does have a history of seizures. He has a history of lung cancer with metastases throughout his body including his brain. He is currently receiving an oral chemotherapeutic agent called Opdivo. He also is getting radiation therapy through Dr. Kenny. His oncologist is Dr. Padgett. He states that this is his third seizure since July 2016. He currently is taking Keppra 1500 mg twice a day. He does complain of a slight headache which is consistent with his normal headaches for which he takes Randolph. At this time he has no other complaints. He has no weakness or paresthesias. His mental status is normal. No other modifying factors. - Related Data Home Medications Medication Instructions Recorded Confirmed ALPRAZolam [Xanax] 0.5 mg PO BID PRN 07/02/16 02/26/17 Hydrocodone/Acetaminophen [[place] 1 tab PO Q4HR PRN 07/02/16 02/26/17 7.5-325] Dronabinol 10 mg PO HS PRN 12/23/16 02/26/17 levETIRAcetam [Keppra] 750 mg PO Q12H 12/23/16 02/26/17 Dexamethasone [Hexadrol] 4 mg PO DAILY 02/26/17 02/26/17 Magnesium Chloride [Mag64] 64 mg PO DAILY 02/26/17 02/26/17 Pantoprazole Sodium [Protonix] 40 mg PO DAILY 02/26/17 02/26/17 Allergies Allergy/AdvReac Type Severity Reaction Status Date / Time Penicillins Allergy Unknown Verified 02/26/17 23:31 Childhood Review of Systems ROS Statement: Those systems with pertinent positive or pertinent negative responses have been documented in the HPI. ROS Other: All systems not noted in ROS Statement are negative. 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 Diagnosed 04/27, currently getting radiation tx History of Any Multi-Drug Resistant Organisms: None Reported Past Surgical History: Orthopedic Surgery Additional Past Surgical History / Comment(s): left arm fx, digits on left hand- injury required surgery, craniotomy 06/12/16 Past Anesthesia/Blood Transfusion Reactions: No Reported Reaction Past Psychological History: Anxiety Additional Psychological History / Comment(s): claustrophobia Smoking Status: Former smoker Past Alcohol Use History: None Reported Additional Past Alcohol Use History / Comment(s): quit smoking 05/09/16, smoked since age 16, smoked 1 -1 1/2PPD Past Drug Use History: None Reported - Past Family History Father Family Medical History: Cancer Additional Family Medical History / Comment(s): Skin CA Mother History Unknown: Yes Family Medical History: Cancer Additional Family Medical History / Comment(s): breast Brother(s) Family Medical History: Cancer Additional Family Medical History / Comment(s): colon, testicular General Exam - General Exam Comments Initial Comments: GENERAL: The patient is well nourished and well hydrated. VITAL SIGNS: Heart rate, blood pressure, respiratory rate reviewed as recorded in nurse's notes. EYES: Pupils are round and reactive. Extraocular movements are intact. No conjunctival / lid redness or swelling. ENT: No external evidence of injury, swelling, or ecchymosis. Airway is patent. Throat is clear. NECK: Nontender. No swelling or evidence of injury. No subcutaneous emphysema. Trachea is midline. No thyroid mass. HEART: Regular rate and rhythm. Good peripheral pulses. LUNGS/CHEST: Breath sounds clear and equal bilaterally. No rales, rhonchi, or wheezes. No ecchymosis, subcutaneous emphysema, or tenderness. ABDOMEN: Abdomen soft without tenderness. No palpable masses or organomegaly. No peritoneal signs. No abdominal wall swelling or ecchymosis. EXTREMITIES: No extremity tenderness. Normal muscle tone and function. No thoracolumbar tenderness. NEUROLOGIC: Sensation is grossly intact. Cranial nerve exam reveals face is symmetrical, tongue is midline, speech is clear. SKIN: There is a diffuse rash throughout the torso and slightly into the face is mildly erythematous and apparently chronic in nature. PSYCHIATRIC: Alert and oriented. Appropriate behavior and judgment. Limitations: no limitations Course Vital Signs 02/26/17 23:12 Temperature 99.2 F Pulse Rate 90 Respiratory 16 Rate Blood Pressure 106/57 O2 Sat by Pulse 95 Oximetry Medical Decision Making - Medical Decision Making The patient was seen and examined. He does receive 1 mg of Ativan intravenously to prevent any further seizures. He takes his Keppra from home which was 2 at 10 PM. He also receives a Randolph from home for his headache. An EKG was done which shows a normal sinus rhythm with a sinus arrhythmia. There is some mild artifact identified. There is no acute ST-T wave changes otherwise noted. The TN interval is 206, QRS duration is 74 and the QTc interval is 392. His Accu-Chek was normal. His mental status is normal. The case is discussed with his oncologist and he also is agreeable in regard to discharge with no further testing at this time. This is explained to the patient and he is agreeable as well. It is felt as though he had a breakthrough seizure. It appears as though he is on maximum dose of his Keppra currently. He is instructed to follow up closely with his doctors and return if any other problems to occur in the interim. - Lab Data Lab Results 02/26/17 Range/Units 23:27 POC Glucose (mg/dL) 100 H (75-99) mg/dL POC Glu Packaging Mechanic ID [id number] Disposition Clinical Impression: Seizure, Brain tumor, Metastatic primary lung cancer Disposition: HOME SELF-CARE Condition: Good Instructions: Recurrent Seizures in Adults (ED) Referrals: None,Stated [Primary Care Provider] - 1-2 days Lester Padgett MD [STAFF PHYSICIAN] - 03/02/17 Time of Disposition: 23:51
[2017-02-27 00:20] VITALS: BP 115/82; PULSE 78
== END 2017-02-27 00:18 | disposition home or self-care (01) ==
LOC: EC 23:00
DX: G40.909 Epilepsy, unspecified, not intractable, without status epilepticus (principal); Z88.0 Allergy status to penicillin; Z86.011 Personal history of benign neoplasm of the brain; Z85.118 Personal history of other malignant neoplasm of bronchus and lung; Z87.891 Personal history of nicotine dependence; Z79.899 Other long term (current) drug therapy
CPT/HCPCS: 99285; 96374; 36415; J2060

== ENCOUNTER → 2017-03-05 | Outpatient (CLI) | payer OTHER ==
--- NOTE | 2017-03-05 13:42 | MR ---
EXAMINATION TYPE: MR brain wo/w con DATE OF EXAM: 03/05/2017 1:27 PM COMPARISON: Prior MRI brain January 08, 2017. HISTORY: secondary malignant neoplasm to brain. Metastases to the brain progress study. TECHNIQUE: Multiplanar, multisequence images of the brain and brainstem is performed without and with IV contras t, utilizing 15 mL intravenous MultiHance . FINDINGS: Diffusion weighted images demonstrate no evidence of a recent infarct or other diffusion ab normality. There is no worrisome extra-axial fluid collection. There is ventricular and sulcal promi nence consistent with diffuse cerebral atrophy. Ex vacuo dilatation posterior frontal horn left later al ventricle is redemonstrated. There are scattered foci of T2 hyperintensity redemonstrated througho ut the white matter bilaterally. There is redemonstration of heterogeneous enhancing lesion left parietal occipital lobe measuring 2.1 x 1.9 cm on current study image 60 diminished in size from 2.4 x 2.3 cm prior study image 69. Some s urrounding edema remains present particularly around medial aspect but is improved. Smaller adjacent lesion posteriorly and superiorly measures 11 x 8 mm on current study axial image 67 versus 14 x 10 m m on prior study image 74. More anterior left frontal peripheral enhancing lesion is less well seen on postcontrast study today, T2-weighted image shows persistent lesion with adjacent edema measuring roughly 11 x 10 mm on axial image 26 versus 9 x 9 mm prior study image 27 felt grossly stable. Vague lower left dose of the lesion is grossly stable in size measuring 4.0 x 2.8 cm on current study axial T2 image 14 series 601 versus prior exam. No new enhancing lesions are clearly seen. Postsurgical change with left parietal craniotomy defect i s redemonstrated. Midline structures demonstrate normal morphology. The craniocervical junction appears within normal limits. Post contrast images demonstrate no abnormal enhancement. The dural venous sinuses appear pa tent. There are new air-fluid levels in the bilateral maxillary sinuses. The globes are intact bilate rally. Some increased fluid signal bilateral mastoid air cells, right greater than left is redemonstr ated. IMPRESSION: Large lobulated left parietal occipital mass is diminished in size with less surrounding edema. Smaller adjacent lesion is slightly diminished in size. More inferior heterogeneous medial lef t occipital mass is stable in size and appearance. More anterior left frontal lesion is stable or min imally larger. No new lesions are seen. Overall mixed response-- stable or improving lesions. No new lesions are evident.
== END | disposition home or self-care (01) ==
LOC: RADMRIMAIN 12:14
PROVIDERS: ATTEND Radiology Radiation Oncology
DX: C79.31 Secondary malignant neoplasm of brain (principal)
CPT/HCPCS: 70553; A9577

== ENCOUNTER → 2017-03-30 | Outpatient (CLI) | payer OTHER ==
[2017-03-30 10:22] LABS: Blood Urea Nitrogen 29 mg/dL (9-20); Non-African American GFR(MDRD) >60 (>60 ml/min/1.73 sqM)
--- NOTE | 2017-03-30 21:06 | CT ---
EXAMINATION TYPE: CT ChestAbdPelvis w con DATE OF EXAM: 03/30/2017 2:19 PM COMPARISON: 11/29/2016 HISTORY: 51-year-old male with history of lung cancer. Liver and brain metastases. TECHNIQUE: Contiguous axial scanning of the chest, abdomen, and pelvis performed with IV Contrast, pa tient injected with 100 ml mL of Omnipaque 300. Delayed images through the kidneys were obtained. Cor onal/sagittal reconstructions performed. CT DLP: 796.80 mGycm Automated exposure control for dose reduction was used. FINDINGS: CHEST: Right anterior chest wall injection port with catheter tip at the lower SVC level. The heart is normal size with trace anterior basilar pericardial fluid. Aorta is normal caliber with conventional arch vessel branching anatomy. There is been marked interval reduction with essential resolution of the previous mediastinal and sub carinal lymphadenopathy. There is residual borderline enlarged left hilar lymph node measuring 1.0 cm . The previously questioned superior segment right lower lobe subpleural nodule is redemonstrated rosetta suring approximately 7 mm but is now more ill-defined in the interval, axial image 40. Large lobulated left upper lobe mass measures 5.9 cm craniocaudal by 4.6 cm wide by 6.3 cm AP. This i s in comparison to 5.6 x 4.2 x 6.6 cm, previously. There is some new bulky growth which extends infer iorly towards the major fissure, coronal image 58. There is mild centrilobular emphysema is mild diffuse bronchial wall thickening compatible with COPD. Strandy areas of atelectasis in the lung bases. Incidental mild to moderate bilateral gynecomastia. ABDOMEN: Redemonstrated multiple hepatic metastases. As compared to prior exam, these show interval increase i n size. Centrally in the liver, this measures 7.3 cm now. In the right hepatic dome, lesion measures 7.8 cm. 2 adjacent lesions in the left hepatic lobe measure 4.0 and 3.3 cm. Additional lesions are pr esent Increased from prior exam. Portal venous system is patent. No biliary ductal dilatation. Spleen and pancreas appear within normal limits. Previous nodules within the adrenal glands have resolved. There is a new heterogeneously hypodense lesion within each kidney. This measures 2.0 cm at the right mid to lower pole and 1.9 cm and the left lateral mid pole. A subcentimeter hypodensity medially is too small for accurate CT characterization but stable and likely represents a cyst. There is increasing abnormal lobulated soft tissue involving the angle formed by the right psoas sammy r and quadratus lumborum. This measures up to 6.6 cm now versus 3.1 cm, previously. No new mesenteric or retroperitoneal lymphadenopathy. No dilated small bowel, free fluid, or free air . There is moderate stool burden without pericolonic inflammatory change. Mild sigmoid diverticulosis . PELVIS: Bladder is underdistended. Prostate gland is enlarged measuring 5.8 cm wide. No abnormal fluid collec tion in the pelvis or pelvic lymphadenopathy. BONES: Degenerative changes lower lumbar spine. No osseous system. IMPRESSION: 1. THERE IS MIXED RESPONSE. IMPROVEMENT INCLUDES RESOLUTION OF PREVIOUS MEDIASTINAL LYMPHADENOPATHY ( A 1 CM LEFT HILAR LYMPH NODE REMAINS), 7 MM SUPERIOR SEGMENT RIGHT LOWER LOBE PULMONARY NODULE STABLE IN SIZE BUT NOW LESS DEFINED, AND RESOLUTION OF PREVIOUS ADRENAL GLAND NODULES. 2. WORSENING INCLUDES NUMEROUS NEW AND ENLARGING HEPATIC METASTASES MEASURING UP TO 7.8 CM, A METASTA TIC FOCUS MEASURING UP TO 2.0 CM WITHIN EACH KIDNEY, AND ENLARGING METASTATIC DEPOSIT IN THE RIGHT RE TROPERITONEUM MEASURING 6.6 CM VERSUS 3.1 CM, PREVIOUSLY. 3. THE PATIENT'S LEFT UPPER LOBE MASS IS RELATIVELY STABLE MEASURING 5.9 CM VERSUS 5.6 CM, PREVIOUSLY . THERE DOES APPEAR TO BE SOME NEW BULKY GROWTH WHICH EXTENDS INFERIORLY TOWARDS THE MAJOR FISSURE.
== END | disposition home or self-care (01) ==
LOC: RADPROMAIN 09:42
PROVIDERS: ATTEND Internal Medicine Hematology & Oncology
DX: C34.90 Malignant neoplasm of unspecified part of unspecified bronchus or lung (principal); C78.7 Secondary malignant neoplasm of liver and intrahepatic bile duct; G40.209 Localization-related (focal) (partial) symptomatic epilepsy and epileptic syndromes with complex partial seizures, not intractable, without status epilepticus
CPT/HCPCS: 80177; 82565; 84520; 71260; 74177; 36415; Q9967

== ENCOUNTER 2017-05-02 02:16 | Inpatient (IN) | payer OTHER ==
[2017-05-02] MEDS ORDERED: ACETAMINOPHEN TAB 500 MG TAB PO STA (02:20)
--- NOTE | 2017-05-02 02:24 | ED ---
Fever HPI - General Stated Complaint: Fever/Weakness Time Seen by Provider: 05/02/17 02:16 Source: patient, EMS, RN notes reviewed Mode of arrival: EMS - History of Present Illness Initial Comments: This is a 51-year-old male history of metastatic lung cancer to the brain and liver who states he had the onset yesterday of a fever. He's had no progressive weakness milliliters. He's had some confusion and weakness. He was brought in by EMS. His frontotemporal while 3.1 blood pressure initially 80 /50 heart rate 125. He was given almost a liter of lactated Ringer's by EMS. Patient denies any sore throat rhinorrhea chest pain he has a headache. No diarrhea no dysuria. MD Complaint: fever, malaise, weakness - Related Data Home Medications Medication Instructions Recorded Confirmed ALPRAZolam [Xanax] 0.5 mg PO BID PRN 07/02/16 02/26/17 Hydrocodone/Acetaminophen [[place] 1 tab PO Q4HR PRN 07/02/16 02/26/17 7.5-325] Dronabinol 10 mg PO HS PRN 12/23/16 02/26/17 levETIRAcetam [Keppra] 750 mg PO Q12H 12/23/16 02/26/17 Dexamethasone [Hexadrol] 4 mg PO DAILY 02/26/17 02/26/17 Magnesium Chloride [Mag64] 64 mg PO DAILY 02/26/17 02/26/17 Pantoprazole Sodium [Protonix] 40 mg PO DAILY 02/26/17 02/26/17 Allergies Allergy/AdvReac Type Severity Reaction Status Date / Time Penicillins Allergy Unknown Verified 02/26/17 23:31 Childhood Review of Systems ROS Statement: Those systems with pertinent positive or pertinent negative responses have been documented in the HPI. ROS Other: All systems not noted in ROS Statement are negative. 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 Diagnosed 04/27, currently getting radiation tx History of Any Multi-Drug Resistant Organisms: None Reported Past Surgical History: Orthopedic Surgery Additional Past Surgical History / Comment(s): left arm fx, digits on left hand- injury required surgery, craniotomy 06/12/16 Past Anesthesia/Blood Transfusion Reactions: No Reported Reaction Past Psychological History: Anxiety Additional Psychological History / Comment(s): claustrophobia Smoking Status: Former smoker Past Alcohol Use History: None Reported Additional Past Alcohol Use History / Comment(s): quit smoking 05/09/16, smoked since age 16, smoked 1 -1 1/2PPD Past Drug Use History: None Reported - Past Family History Father Family Medical History: Cancer Additional Family Medical History / Comment(s): Skin CA Mother History Unknown: Yes Family Medical History: Cancer Additional Family Medical History / Comment(s): breast Brother(s) Family Medical History: Cancer Additional Family Medical History / Comment(s): colon, testicular General Exam - General Exam Comments Initial Comments: This is a well-developed well-nourished awake alert oriented 3 male General appearance: alert, in no apparent distress Head exam: Present: atraumatic, normocephalic, normal inspection Eye exam: Present: normal appearance, PERRL, EOMI. Absent: scleral icterus, conjunctival injection, periorbital swelling ENT exam: Present: mucous membranes dry Neck exam: Present: normal inspection. Absent: tenderness, meningismus, lymphadenopathy Respiratory exam: Present: decreased breath sounds. Absent: respiratory distress, wheezes, rales, rhonchi, stridor Cardiovascular Exam: Present: regular rate, normal rhythm, normal heart sounds. Absent: systolic murmur, diastolic murmur, rubs, gallop, clicks GI/Abdominal exam: Present: soft, normal bowel sounds. Absent: distended, tenderness, guarding, rebound, rigid Extremities exam: Present: normal inspection, full ROM, normal capillary refill. Absent: tenderness, pedal edema, joint swelling, calf tenderness Back exam: Present: normal inspection Neurological exam: Present: alert, oriented X3, CN II-XII intact Psychiatric exam: Present: normal affect, normal mood Skin exam: Present: warm, dry, intact, normal color. Absent: rash Course Vital Signs 05/02/17 05/02/17 05/02/17 02:20 03:54 04:00 Temperature 100.6 F H 99.9 F H 99.0 F Pulse Rate 95 106 H 100 Respiratory 22 18 20 Rate Blood Pressure 105/68 88/51 85/53 O2 Sat by Pulse 100 97 100 Oximetry - Reevaluation(s) Reevaluation #1: 05/02/17 04:21 Patient still is relatively hypotensive after 2 L of fluid given in the emergency department almost 1 L by EMS he will get another liter of fluid his heart rate has responded. Medical Decision Making - Medical Decision Making Patient is still slightly confused per his is improved. The patient will be admitted. There is interval increase in size of a massive left upper lobe of the lung. Postobstructive pneumonia is considered. Other sources not been identified thus far for the fever. Patient will be admitted with consultation from oncology. His lactic acid is 1.6 is within normal limits patient is attending physician is Dr. Ayoub - Lab Data Result diagrams: 05/02/17 02:20 05/02/17 02:20 Lab Results 05/02/17 05/02/17 05/02/17 Range/Units 02:20 02:20 02:20 WBC 4.1 (3.8-10.6) k/uL RBC 3.00 L (4.30-5.90) m/uL Hgb 10.0 L D (13.0-17.5) gm/dL Hct 29.3 L (39.0-53.0) % MCV 97.6 (80.0-100.0) fL MCH 33.3 (25.0-35.0) pg MCHC 34.1 (31.0-37.0) g/dL RDW 17.5 H (11.5-15.5) % Plt Count 25 L* D (150-450) k/uL Neutrophils % (Manual) 72.5 % Band Neutrophils % 15.5 % Lymphocytes % (Manual) 6.0 % Monocytes % (Manual) 1.5 % Metamyelocytes % 4.0 % Myelocytes % 0.5 % Neutrophils # (Manual) 3.6 (1.3-7.7) k/uL Lymphocytes # (Manual) 0.2 L (1.0-4.8) k/uL Monocytes # (Manual) 0.1 (0-1.0) k/uL Nucleated RBCs 6 H (0-0) /100 WBC Manual Slide Review Performed Polychromasia Present Poikilocytosis Slight Anisocytosis Slight Macrocytosis Slight PT (9.0-12.0) sec INR (<1.1) APTT (22.0-30.0) sec Sodium 135 L (137-145) mmol/L Potassium 3.6 (3.5-5.1) mmol/L Chloride 104 (98-107) mmol/L Carbon Dioxide 23 (22-30) mmol/L Anion Gap 8 mmol/L BUN 20 (9-20) mg/dL Creatinine 0.70 (0.66-1.25) mg/dL Est GFR (MDRD) Af Amer >60 (>60 ml/min/1.73 sqM) Est GFR (MDRD) Non-Af >60 (>60 ml/min/1.73 sqM) Glucose 84 (74-99) mg/dL Plasma Lactic Acid Niko (0.7-2.0) mmol/L Calcium 8.2 L (8.4-10.2) mg/dL Magnesium 1.0 L* (1.6-2.3) mg/dL Total Bilirubin 1.3 (0.2-1.3) mg/dL AST 35 (17-59) U/L ALT 54 (21-72) U/L Alkaline Phosphatase 108 (38-126) U/L Total Creatine Kinase 22 L (55-170) U/L CK-MB (CK-2) <0.2 (0.0-2.4) ng/mL CK-MB (CK-2) Rel Index Troponin I <0.012 (0.000-0.034) ng/mL Total Protein 5.0 L (6.3-8.2) g/dL Albumin 2.7 L (3.5-5.0) g/dL Cortisol 4 ug/dL Urine Color Urine Appearance (Clear) Urine pH (5.0-8.0) Ur Specific [place] (1.001-1.035) Urine Protein (Negative) Urine Glucose (UA) (Negative) Urine Ketones (Negative) Urine Blood (Negative) Urine Nitrite (Negative) Urine Bilirubin (Negative) Urine Urobilinogen (<2.0) mg/dL Ur Leukocyte Esterase (Negative) 05/02/17 05/02/17 05/02/17 Range/Units 02:20 02:20 02:45 WBC (3.8-10.6) k/uL RBC (4.30-5.90) m/uL Hgb (13.0-17.5) gm/dL Hct (39.0-53.0) % MCV (80.0-100.0) fL MCH (25.0-35.0) pg MCHC (31.0-37.0) g/dL RDW (11.5-15.5) % Plt Count (150-450) k/uL Neutrophils % (Manual) % Band Neutrophils % % Lymphocytes % (Manual) % Monocytes % (Manual) % Metamyelocytes % % Myelocytes % % Neutrophils # (Manual) (1.3-7.7) k/uL Lymphocytes # (Manual) (1.0-4.8) k/uL Monocytes # (Manual) (0-1.0) k/uL Nucleated RBCs (0-0) /100 WBC Manual Slide Review Polychromasia Poikilocytosis Anisocytosis Macrocytosis PT 11.6 (9.0-12.0) sec INR 1.2 (<1.1) APTT 21.0 L (22.0-30.0) sec Sodium (137-145) mmol/L Potassium (3.5-5.1) mmol/L Chloride (98-107) mmol/L Carbon Dioxide (22-30) mmol/L Anion Gap mmol/L BUN (9-20) mg/dL Creatinine (0.66-1.25) mg/dL Est GFR (MDRD) Af Amer (>60 ml/min/1.73 sqM) Est GFR (MDRD) Non-Af (>60 ml/min/1.73 sqM) Glucose (74-99) mg/dL Plasma Lactic Acid Niko 1.6 (0.7-2.0) mmol/L Calcium (8.4-10.2) mg/dL Magnesium (1.6-2.3) mg/dL Total Bilirubin (0.2-1.3) mg/dL AST (17-59) U/L ALT (21-72) U/L Alkaline Phosphatase (38-126) U/L Total Creatine Kinase (55-170) U/L CK-MB (CK-2) (0.0-2.4) ng/mL CK-MB (CK-2) Rel Index Troponin I (0.000-0.034) ng/mL Total Protein (6.3-8.2) g/dL Albumin (3.5-5.0) g/dL Cortisol ug/dL Urine Color Yellow Urine Appearance Clear (Clear) Urine pH 6.5 (5.0-8.0) Ur Specific [place] 1.019 (1.001-1.035) Urine Protein Trace H (Negative) Urine Glucose (UA) Negative (Negative) Urine Ketones Negative (Negative) Urine Blood Negative (Negative) Urine Nitrite Negative (Negative) Urine Bilirubin Negative (Negative) Urine Urobilinogen 6.0 (<2.0) mg/dL Ur Leukocyte Esterase Negative (Negative) - EKG Data -: EKG Interpreted by Fl EKG shows normal: sinus rhythm (Sinus tachycardia of 109 MD interval 180 QRS duration 74 QT/QTC of 360/[address]-T wave changes) - Radiology Data Radiology results: report reviewed (I did review the imaging and report or is slight interval increase in size the left upper lung mass compared to previous x -ray mild interstitial prominence in the lungs), image reviewed Disposition Clinical Impression: Postobstructive pneumonia, Lung cancer, primary, with metastasis from lung to other site, Dehydration, Febrile illness, acute, Hypotensive episode, Thrombocytopenia Disposition: ADMITTED IP TO THIS [facility] Condition: Stable Referrals: Mark Briceño MD [REFERRING] - 1-2 days
[2017-05-02] MEDS: SODIUM CHLORIDE 0.9% 500 ML IV SCH ×2 (02:30→02:41)
[2017-05-02] MEDS: SODIUM CHLORIDE 0.9% 1,000 ML IV SCH ×3 (02:40→19:18)
[2017-05-02 02:55] LABS: Appearance,Urine Clear (Clear); Bilirubin,Urine Negative (Negative); Glucose,Urine (UA) Negative (Negative); Ketones,Urine Negative (Negative); Leukocyte Esterase,Urine Negative (Negative); Nitrite,Urine Negative (Negative); PH, Urine 6.5 (5.0-8.0); Protein,Urine Trace (Negative); Specific Gravity,Urine 1.019 (1.001-1.035); UA Billing (MACRO vs. MICRO) CHEM
[2017-05-02 03:00] LABS: Anisocytosis Slight; CH 34.7; CHCM 35.8; HCT 29.3 % (39.0-53.0); HDW 3.66; Immature Gran Flag Marked; MCH 33.3 pg (25.0-35.0); MCHC 34.1 g/dL (31.0-37.0); MCV 97.6 fL (80.0-100.0); Macrocytosis Slight; Mean Platelet Volume 9.4; Poikilocytosis Slight; RDW 17.5 % (11.5-15.5); WBC (Perox) 4.52
--- NOTE | 2017-05-02 03:05 | XR ---
EXAM: XR Chest, 2 Views CLINICAL HISTORY: Fever. TECHNIQUE: Frontal and lateral views of the chest. COMPARISON: CXR dated 02/19/2017. FINDINGS: Lungs: Slight interval increase in size of left upper lung mass compared to prior CXR. Mild interstitial prominence in the lungs and prominence of central bronchovascular markings. Pleural space: No pleural effusion. No pneumothorax. Heart: Cardiac silhouette size within normal limits. Mediastinum: Unremarkable. Bones/joints: Stable osseous structures. Tubes, lines and devices: Right chest wall Port-A-Cath with tip in the superior vena cava, stable. IMPRESSION: 1. Slight interval increase in size of left upper lung mass compared to prior CXR. Findings are consistent with known lung neoplasm. CT can be obtained to further assess if not recently performed. 2. Mild interstitial prominence in the lungs and prominence of central bronchovascular markings. Mild congestive change versus infectious or inflammatory process not excluded. 3. Right chest wall Port-A-Cath with tip in the superior vena cava, stable.
[2017-05-02 03:07] LABS: ALT 54 U/L (21-72); AST 35 U/L (17-59); Alkaline Phosphatase 108 U/L (38-126); Anion Gap 8 mmol/L; Blood Urea Nitrogen 20 mg/dL (9-20); Calcium 8.2 mg/dL (8.4-10.2); Carbon Dioxide 23 mmol/L (22-30); Chloride 104 mmol/L (98-107); Glucose 84 mg/dL (74-99); Non-African American GFR(MDRD) >60 (>60 ml/min/1.73 sqM); Potassium 3.6 mmol/L (3.5-5.1); Sodium 135 mmol/L (137-145); Total Bilirubin 1.3 mg/dL (0.2-1.3)
[2017-05-02 03:16] LABS: INR 1.2 (<1.1); Prothrombin Time 11.6 sec (9.0-12.0)
[2017-05-02 03:29] LABS: Creatine Kinase 22 U/L (55-170)
[2017-05-02 03:42] LABS: Creatine Kinase MB <0.2 ng/mL (0.0-2.4); Troponin I <0.012 ng/mL (0.000-0.034)
[2017-05-02 03:50] LABS: Add Differential Manual Differential
[2017-05-02] MEDS: MAGNESIUM SULFATE-D5W PMX 1 GM in DEXTROSE/WATER 1 100ML.BAG IVPB SCH ×2 (03:54→04:53)
[2017-05-02 03:55] LABS: Band Neutrophils % 15.5 %; Manual Review Performed; Myelocytes % 0.5 %; Nucleated Red Blood Cells 6 /100 WBC (0-0); Total Cells Counted 200; WBC 4.1 k/uL (3.8-10.6)
[2017-05-02 03:57] LABS: Polychromasia Present
[2017-05-02] MEDS ORDERED: SODIUM CHLORIDE 0.9% 1,000 ML IV STA ×2 (03:57→04:21)
[2017-05-02] MEDS ORDERED: POTASSIUM CHLORIDE 20 MEQ, LIDOCAINE 2% INJ 20 MG in SODIUM CHLORIDE 0.9% 100 ML IVPB ONE (04:06)
[2017-05-02] MEDS ORDERED: CEFEPIME 2 GM in SODIUM CHLORIDE 0.9% 50 ML IVPB STA (04:17)
[2017-05-02] MEDS ORDERED: NALOXONE 0.4 MG/ML 1 ML VIAL IV PRN (04:32)
[2017-05-02] MEDS ORDERED: DRONABINOL 2.5 MG CAP PO PRN (04:36)
[2017-05-02] MEDS ORDERED: ALPRAZolam 0.5 MG TAB PO PRN (04:36)
[2017-05-02] MEDS ORDERED: HYDROCORTISONE SUCCINATE 100 MG/2 ML VIAL IV STA (04:37)
[2017-05-02] MEDS ORDERED: MORPHINE SULFATE 2 MG/ML SYRINGE IVP ONE (04:39)
[2017-05-02 07:55] LABS: Glucose,Whole Blood 124 mg/dL (75-99)
[2017-05-02] MEDS: 0.9% NACL WITH KCL 20 MEQ/L 1,000 ML IV SCH ×3 (08:20→20:52)
[2017-05-02 08:30] VITALS: BMI 24.5
[2017-05-02] MEDS ORDERED: DEXAMETHASONE 4 MG TAB PO SCH (09:00)
[2017-05-02] MEDS ORDERED: MAGNESIUM OXIDE 400 MG TAB PO SCH (09:00)
[2017-05-02] MEDS: MORPHINE SULFATE 4 MG/ML SYRINGE IV PRN (10:26)
[2017-05-02 11:18] LABS: Glucose,Whole Blood 123 mg/dL (75-99)
[2017-05-02] MEDS: PANTOPRAZOLE 40 MG TABLET PO SCH (12:05)
[2017-05-02] MEDS: ACETAMINOPHEN TAB 325 MG TAB PO PRN (12:09)
[2017-05-02] MEDS ORDERED: SODIUM CHLORIDE 0.9% 500 ML IV ONE (15:02)
[2017-05-02] MEDS ORDERED: IPRATROPIUM-ALBUTEROL 3 ML NEB INHALATION PRN (15:35)
[2017-05-02] MEDS: IPRATROPIUM-ALBUTEROL 3 ML NEB INHALATION SCH ×2 (16:13→20:54)
[2017-05-02] MEDS: methylPREDNISolone SOD SUCCI 125 MG/2 ML VIAL IV SCH (17:12)
[2017-05-02] MEDS: CEFEPIME 2 GM in SODIUM CHLORIDE 0.9% 50 ML IVPB SCH (17:15)
--- NOTE | 2017-05-02 17:25 | P.CONS ---
History of Present Illness - Reason for Consult Consult date: 05/02/17 fever, on chemotherapy Requesting physician: Austin Renee - Chief Complaint fever - History of Present Illness Pt is a very pleasant 51 year old male pt of Dr. Padgett who presented to [facility] ER 05/09/16 with progressive headache and diplopia, CT head reveled a large 6.1 X 4.5 cm mass in left cerebral hemisphere, pt transferred to [facility], Dr. 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 AMADOU mass identified on CXR, staging CT CAP and PET in May 2016 showed AMADOU, medistinal masses and a liver lesion consistent with malignancy and 3.2 cm lesion near lower pole of right kidney, biopsy of AMADOU and kidney mass revealed poorly-differentiated squamous cell carcinoma, MRI of brain did not reveal other areas of brain mets. Pt was healing from crainotomy, presented with abd pain, CT AP 06/23/16 liver lesion had doubled in size. He started Carboplatin/abraxane soon after. He tolerated treatment well, had to start Keppra for seizures in Oct 2016. Treatment follow up CT showed improvement in all areas except medistinum, pt completed 6 cycles in Nov 2016. Treatment follow up CT Nov 2016 and follow up MRI of brain showed progression in multiple areas. Pt was started on Decadron due of progression of brain mets and started on nivolumab, started WBRT when MRI head on 01/08/17 revealed progressive brain mets. Pt had Grand Mal siezure on 01/26/17, transferred to [facility], not suspected of progressive disease, Keppra increased, he completed XRT to brain in February. Treatment f/u CT in March showed progression of liver mets, pt was changed to single agent gemzar and started 04/19, days 1, 8, he has had 1 cycle. Pt had treatment last week, he was at home and found to have a fever so his brought him in to the hospital. When seen he is sitting up in bed eating breakfast, he denies SOB, cough, pain, changesin bowel or bladder habits, he does know that he can be confused and has memory trouble. He states he has trouble concentrating and is more confused when he is hungry, he feels better and can think clearer after eating. Review of Systems All systems: negative Constitutional: Reports as per HPI Past Medical History Past Medical History: Cancer, Seizure Disorder, Skin Disorder Additional Past Medical History / Comment(s): herniated disc in neck, lung Ca with mets to brain, kidney and lymph node in chest- stage IV. Diagnosed 04/27, currently getting radiation tx History of Any Multi-Drug Resistant Organisms: None Reported Past Surgical History: Orthopedic Surgery Additional Past Surgical History / Comment(s): left arm fx, digits on left hand- injury required surgery, craniotomy 06/12/16 Past Anesthesia/Blood Transfusion Reactions: No Reported Reaction Smoking Status: Former smoker - Past Family History Father Family Medical History: Cancer Additional Family Medical History / Comment(s): Skin CA Mother History Unknown: Yes Family Medical History: Cancer Additional Family Medical History / Comment(s): breast Brother(s) Family Medical History: Cancer Additional Family Medical History / Comment(s): colon, testicular Medications and Allergies Home Medications Medication Instructions Recorded Confirmed Type Hydrocodone/Acetaminophen [[place] 1 tab PO Q4HR PRN 07/02/16 05/02/17 History 7.5-325] levETIRAcetam [Keppra] 1,500 mg PO Q12H 12/23/16 05/02/17 History Dexamethasone [Hexadrol] 4 mg PO BID 02/26/17 05/02/17 History Pantoprazole Sodium [Protonix] 40 mg PO DAILY 02/26/17 05/02/17 History LORazepam [Ativan] 4 mg PO HS PRN 05/02/17 05/02/17 History Allergies Allergy/AdvReac Type Severity Reaction Status Date / Time Penicillins Allergy Unknown Verified 05/02/17 08:20 Childhood Physical Exam Vitals: Vital Signs Temp Pulse Pulse Resp BP BP Pulse Ox 05/02/17 12:10 101.2 F H 124 H 20 91/58 05/02/17 08:35 72 20 05/02/17 07:45 98.1 F 88 18 94/62 93 L 05/02/17 06:27 85 20 91/57 94 L 05/02/17 05:36 98 20 88/52 94 L 05/02/17 04:00 99.0 F 100 20 85/53 100 05/02/17 03:54 99.9 F H 106 H 18 88/51 97 06/21/17 02:20 100.6 F H 95 22 105/68 100 Intake and Output 05/01/17 05/02/17 05/02/17 22:59 06:59 14:59 Output Total 300 Balance -300 Output: Urine 300 Other: # Voids 1 Weight 81.647 kg 82 kg Patient Weight 05/03/17 06:59 Weight 82 kg - Constitutional General appearance: cooperative, no acute distress, obese - EENT Eyes: anicteric sclerae, EOMI, normal appearance ENT: hearing grossly normal, normal oropharynx - Neck Neck: no lymphadenopathy - Respiratory Respiratory: bilateral: diminished - Cardiovascular Rhythm: regular Heart sounds: normal: S1, S2 leg Peripheral Edema: bilateral: Trace - Gastrointestinal General gastrointestinal: no absent bowel sounds, no decreased bowel sounds, no distended, no hepatomegaly, no hyperactive bowel sounds, normal bowel sounds, no organomegaly, no rigid, no scaphoid, soft, no splenomegaly, no tenderness, no umbilical hernia, no ventral hernia - Integumentary Integumentary: pale - Neurologic generalized weakness, tremor noted, occasional episodes of confusion. Neurologic: CNII-XII intact - Musculoskeletal Musculoskeletal: generalized weakness - Psychiatric Psychiatric: A&O x's 3, appropriate affect Results CBC & Chem 7: 05/02/17 02:20 05/02/17 02:20 Labs: Abnormal Lab Results - Last 24 Hours (Table) 05/02/17 05/02/17 05/02/17 Range/Units 02:20 02:20 02:20 RBC 3.00 L (4.30-5.90) m/uL Hgb 10.0 L D (13.0-17.5) gm/dL Hct 29.3 L (39.0-53.0) % RDW 17.5 H (11.5-15.5) % Plt Count 25 L* D (150-450) k/uL Lymphocytes # (Manual) 0.2 L (1.0-4.8) k/uL Nucleated RBCs 6 H (0-0) /100 WBC APTT (22.0-30.0) sec Sodium 135 L (137-145) mmol/L POC Glucose (mg/dL) (75-99) mg/dL Calcium 8.2 L (8.4-10.2) mg/dL Magnesium 1.0 L* (1.6-2.3) mg/dL Total Creatine Kinase 22 L (55-170) U/L Total Protein 5.0 L (6.3-8.2) g/dL Albumin 2.7 L (3.5-5.0) g/dL Urine Protein (Negative) 05/02/17 05/02/17 05/02/17 Range/Units 02:20 02:45 07:52 RBC (4.30-5.90) m/uL Hgb (13.0-17.5) gm/dL Hct (39.0-53.0) % RDW (11.5-15.5) % Plt Count (150-450) k/uL Lymphocytes # (Manual) (1.0-4.8) k/uL Nucleated RBCs (0-0) /100 WBC APTT 21.0 L (22.0-30.0) sec Sodium (137-145) mmol/L POC Glucose (mg/dL) 124 H (75-99) mg/dL Calcium (8.4-10.2) mg/dL Magnesium (1.6-2.3) mg/dL Total Creatine Kinase (55-170) U/L Total Protein (6.3-8.2) g/dL Albumin (3.5-5.0) g/dL Urine Protein Trace H (Negative) 05/02/17 Range/Units 11:14 RBC (4.30-5.90) m/uL Hgb (13.0-17.5) gm/dL Hct (39.0-53.0) % RDW (11.5-15.5) % Plt Count (150-450) k/uL Lymphocytes # (Manual) (1.0-4.8) k/uL Nucleated RBCs (0-0) /100 WBC APTT (22.0-30.0) sec Sodium (137-145) mmol/L POC Glucose (mg/dL) 123 H (75-99) mg/dL Calcium (8.4-10.2) mg/dL Magnesium (1.6-2.3) mg/dL Total Creatine Kinase (55-170) U/L Total Protein (6.3-8.2) g/dL Albumin (3.5-5.0) g/dL Urine Protein (Negative) - Last 24 Hours (Table) 05/02/17 02:45 Urine Culture - Preliminary Urine,Clean Catch Abdominal x-ray: report reviewed CT scan - abdomen: report reviewed CT scan - chest: report reviewed CT scan - pelvis: report reviewed MRI - head: report reviewed Assessment and Plan (1) Febrile illness, acute Narrative/Plan: Pancultures ordered, empiric antibiotics. Dr. Honeycutt consulted for decubitus wound evaluation and treatment recommendations. Status: Acute (2) Brain metastases Narrative/Plan: Cont on keppra and dexamathasone Status: Acute (3) Squamous cell carcinoma lung Narrative/Plan: Pt was just started on new treatment regimen, the effects of which have not been achieved yet. Pt will be reevaluated prior to resuming any treatment outpatient. Status: Chronic (4) Bicytopenia Narrative/Plan: Secondary to chemo, no acute intervention, labs daily. SCD for DVT prophylaxis, no ASA, NSAIDs. Status: Acute Plan: Dr. Honeycutt consulted for decubitus wound evaluation and treatment recommendations. Case Management consulted for home care referral PT/OT ordered
[2017-05-02 19:18] LABS: Glucose,Whole Blood 97 mg/dL (75-99)
[2017-05-02] MEDS: INSULIN LISPRO (humaLOG) 300 UNIT/3 ML VIAL SQ SCH ×2 (19:18→22:22)
[2017-05-02 19:27] LABS: Hemoglobin A1C 5.6 % (4.2-6.1)
[2017-05-02] MEDS ORDERED: TEMAZEPAM 15 MG CAP PO PRN (19:53)
[2017-05-02] MEDS: HYDROcodone/APAP 7.5-325MG 1 EACH TAB PO PRN (20:03)
--- NOTE | 2017-05-02 20:41 | P.CONS ---
History of Present Illness - Reason for Consult Consult date: 05/02/17 - Chief Complaint Fever and weakness - History of Present Illness 51-year-old male presents the emergency center with fever and increasing weakness. He has an extensive history going back to last summer were presented to the hospital with altered mental status. Without evidence of a brain lesion that was 6 cm in size. 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 Was a dramatic improvement from his lung cancer that was found at that time. He has been evidence of mediastinal mass as well as liver lesion. He also had evidence of a renal lesion which also revealed evidence of the poorly differentiated squamous cell carcinoma. He was treated with chemotherapy with carboplatinum and Abraxane. However by this winter there was evidence of progression of his disease in his brain and liver. We treated with whole brain radiation therapy and nivolumab. He had worsening and was transferred to his neurosurgical hospital. He is now currently on single agent Gemzar. He has developed the significant fever and seems to be having some cough which the family thinks might be worse than before. Patient's is present and is quite anxious about his status. Review of Systems Review of systems is obtained and the significant help from the patient's HEENT: No new headaches or visual change. Denies sinus or mouth discomforts. Denies neck stiffness or pain. Denies significant oral cavity pain. Denies difficulty on swallowing. Lungs: He has some cough and sputum production but is without change no recent hemoptysis Cardiovascular: Denies significant shortness of breath, chest pain, chest wall pain, orthopnea, dyspnea on exertion, syncope Gastrointestinal:Denies nausea, vomiting, diarrhea, constipation, hematemesis, melena, hematochezia. No no significant change of bowel habit noticed. Musculoskeletal: denies significant myalgias or arthralgias. No new joint swelling. Denies new back pain. Skin: Denies new rash or lesions. No new ulcers or wounds are related.. Neuro: No active seizures at this time. Generalized weakness and malaise without acute change except for the start of the fever. Psychiatric:Denies anxiety or depression. 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 Diagnosed 04/27, currently getting radiation tx History of Any Multi-Drug Resistant Organisms: None Reported Past Surgical History: Orthopedic Surgery Additional Past Surgical History / Comment(s): left arm fx, digits on left hand- injury required surgery, craniotomy 06/12/16 Past Anesthesia/Blood Transfusion Reactions: No Reported Reaction Additional Psychological History / Comment(s): . 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 No travels. Pet dog and cat in the home they are not new Smoking Status: Former smoker - Past Family History Father Family Medical History: Cancer Additional Family Medical History / Comment(s): Skin CA Mother History Unknown: Yes Family Medical History: Cancer Additional Family Medical History / Comment(s): breast Brother(s) Family Medical History: Cancer Additional Family Medical History / Comment(s): colon, testicular Medications and Allergies Home Medications and Allergies Comment(s): Current Medications Acetaminophen (Tylenol Tab) 650 mg PO Q6HR PRN PRN Reason: Mild Pain or Fever > 100.5 Last Admin: 05/02/17 12:09 Dose: 650 mg Hydrocodone Bitart/Acetaminophen ([place] 7.5-325) 1 each PO Q4HR PRN PRN Reason: Pain Last Admin: 05/02/17 20:03 Dose: 1 each Albuterol/Ipratropium (Duoneb 0.5 Mg-3 Mg/3 Ml Soln) 3 ml INHALATION RT-QID JAZLYN Last Admin: 05/02/17 16:13 Dose: 3 ml Albuterol/Ipratropium (Duoneb 0.5 Mg-3 Mg/3 Ml Soln) 3 ml INHALATION RT-Q2H PRN PRN Reason: Shortness Of Breath Or Wheezing Dexamethasone (Hexadrol) 4 mg PO BID JAZLYN Sodium Chloride (Saline 0.9%) 1,000 mls @ 125 mls/hr IV .Q8H JAZLYN Last Admin: 05/02/17 19:18 Dose: Not Given Potassium Chloride/Sodium Chloride (Ns-Kcl 20 Meq/L Iv Solution) 1,000 mls @ 125 mls/hr IV .Q8H JAZLYN Last Admin: 05/02/17 12:05 Dose: 125 mls/hr Cefepime HCl 2 gm/ Sodium (Chloride) 50 mls @ 100 mls/hr IVPB Q8HR JAZLYN Last Admin: 05/02/17 17:15 Dose: 100 mls/hr Insulin Human Lispro (Humalog) 0 unit SQ ACHS JAZLYN PRN Reason: Protocol Last Admin: 05/02/17 19:18 Dose: Not Given Levetiracetam (Keppra) 1,500 mg PO Q12HR [facility] Lorazepam (Ativan) 0.5 mg PO Q8HR PRN PRN Reason: Anxiety Methylprednisolone Sodium Succinate (Solu-Medrol) 60 mg IV Q6HR [facility] Last Admin: 05/02/17 17:12 Dose: 60 mg Morphine Sulfate (Morphine Sulfate (Inj)) 4 mg IV Q4HR PRN PRN Reason: Severe Pain Last Admin: 05/02/17 10:26 Dose: 4 mg Multivitamins (Theragran) 1 each PO DAILY@1200 JAZLYN Naloxone HCl (Narcan) 0.2 mg IV Q2M PRN PRN Reason: Opioid Reversal Pantoprazole Sodium (Protonix) 40 mg PO DAILY [facility] Last Admin: 05/02/17 12:05 Dose: 40 mg Temazepam (Restoril) 15 mg PO HS PRN PRN Reason: Insomnia Home Medications Medication Instructions Recorded Confirmed Type Hydrocodone/Acetaminophen [[place] 1 tab PO Q4HR PRN 07/02/16 05/02/17 History 7.5-325] levETIRAcetam [Keppra] 1,500 mg PO Q12H 12/23/16 05/02/17 History Dexamethasone [Hexadrol] 4 mg PO BID 02/26/17 05/02/17 History Pantoprazole Sodium [Protonix] 40 mg PO DAILY 02/26/17 05/02/17 History LORazepam [Ativan] 4 mg PO HS PRN 05/02/17 05/02/17 History Allergies Allergy/AdvReac Type Severity Reaction Status Date / Time Penicillins Allergy Unknown Verified 05/02/17 08:20 Childhood Physical Exam Vitals: Vital Signs Temp Pulse Pulse Resp BP BP Pulse Ox 05/02/17 16:53 91 05/02/17 16:19 90 05/02/17 16:00 100 20 05/02/17 15:00 98 F 100 20 103/68 97 05/02/17 13:15 100.3 F H 90 20 101/62 96 05/02/17 12:10 101.2 F H 124 H 20 91/58 05/02/17 11:00 101.2 F H 124 H 20 91/58 95 05/02/17 08:35 72 20 05/02/17 07:45 98.1 F 88 18 94/62 93 L 05/02/17 06:27 85 20 91/57 94 L 05/02/17 05:36 98 20 88/52 94 L 05/02/17 04:00 99.0 F 100 20 85/53 100 05/02/17 03:54 99.9 F H 106 H 18 88/51 97 05/02/17 02:20 100.6 F H 95 22 105/68 100 Intake and Output 05/02/17 05/02/17 05/02/17 06:59 14:59 22:59 Intake Total 240 Output Total 900 Balance -660 Intake: Oral 240 Output: Urine 900 Other: # Voids 1 Weight 81.647 kg 82 kg 82 kg Patient Weight 05/03/17 06:59 Weight 82 kg 51-year-old male who is evidence of the prior craniotomy seems to be comfortable but vague. HEENT: Anicteric conjunctiva are pink and moist nasal mucosa grossly intact without significant lesions, there is no thrush. Neck: The neck is supple without significant lymphadenopathy or thyromegaly. Lungs: Symmetrical air entry is noted. Expiratory wheezes are scattered. The left posterior zone has evidence of crackles. No bobby bronchial sounds are heard. Heart: Regular rate and rhythm with an audible S1-S2, no S3 no S4. There is no significant murmur click or rub, PMI was nondisplaced. Abdomen: Positive bowel sounds soft and nontender without palpable masses or organomegaly. There was no guarding or rebound. Extremities: The upper extremities have excellent pulses they are symmetric, no significant petechiae or telangiectasia. No splinter hemorrhages were noted. The lower extremities are free from significant edema. The peripheral pulses were 2+ and symmetric. Neuro: Awake alert oriented to person place was able to answer simple questions. But has a significant vagueness to his personality. No evidence of a seizure activity. Moved upper and lower extremities upon request with no laterality. No evidence of nystagmus. Tongue was midline. Results CBC & Chem 7: 05/02/17 02:20 05/02/17 02:20 Labs: Abnormal Lab Results - Last 24 Hours (Table) 05/02/17 05/02/17 05/02/17 Range/Units 02:20 02:20 02:20 RBC 3.00 L (4.30-5.90) m/uL Hgb 10.0 L D (13.0-17.5) gm/dL Hct 29.3 L (39.0-53.0) % RDW 17.5 H (11.5-15.5) % Plt Count 25 L* D (150-450) k/uL Lymphocytes # (Manual) 0.2 L (1.0-4.8) k/uL Nucleated RBCs 6 H (0-0) /100 WBC APTT (22.0-30.0) sec Sodium 135 L (137-145) mmol/L POC Glucose (mg/dL) (75-99) mg/dL Plasma Lactic Acid Niko (0.7-2.0) mmol/L Calcium 8.2 L (8.4-10.2) mg/dL Magnesium 1.0 L* (1.6-2.3) mg/dL Total Creatine Kinase 22 L (55-170) U/L Total Protein 5.0 L (6.3-8.2) g/dL Albumin 2.7 L (3.5-5.0) g/dL Urine Protein (Negative) 05/02/17 05/02/17 05/02/17 Range/Units 02:20 02:45 07:52 RBC (4.30-5.90) m/uL Hgb (13.0-17.5) gm/dL Hct (39.0-53.0) % RDW (11.5-15.5) % Plt Count (150-450) k/uL Lymphocytes # (Manual) (1.0-4.8) k/uL Nucleated RBCs (0-0) /100 WBC APTT 21.0 L (22.0-30.0) sec Sodium (137-145) mmol/L POC Glucose (mg/dL) 124 H (75-99) mg/dL Plasma Lactic Acid Niko (0.7-2.0) mmol/L Calcium (8.4-10.2) mg/dL Magnesium (1.6-2.3) mg/dL Total Creatine Kinase (55-170) U/L Total Protein (6.3-8.2) g/dL Albumin (3.5-5.0) g/dL Urine Protein Trace H (Negative) 05/02/17 05/02/17 05/02/17 Range/Units 11:14 13:00 13:00 RBC (4.30-5.90) m/uL Hgb (13.0-17.5) gm/dL Hct (39.0-53.0) % RDW (11.5-15.5) % Plt Count (150-450) k/uL Lymphocytes # (Manual) (1.0-4.8) k/uL Nucleated RBCs (0-0) /100 WBC APTT (22.0-30.0) sec Sodium (137-145) mmol/L POC Glucose (mg/dL) 123 H (75-99) mg/dL Plasma Lactic Acid Niko 2.5 H* (0.7-2.0) mmol/L Calcium (8.4-10.2) mg/dL Magnesium 1.5 L (1.6-2.3) mg/dL Total Creatine Kinase (55-170) U/L Total Protein (6.3-8.2) g/dL Albumin (3.5-5.0) g/dL Urine Protein (Negative) Microbiology - Last 24 Hours (Table) 05/02/17 02:45 Urine Culture - Preliminary Urine,Clean Catch Laboratory Results WBC 4.1 k/uL (3.8-10.6) 05/02/17 02:20 RBC 3.00 m/uL (4.30-5.90) L 05/02/17 02:20 Hgb 10.0 gm/dL (13.0-17.5) L D 05/02/17 02:20 Hct 29.3 % (39.0-53.0) L 05/02/17 02:20 MCV 97.6 fL (80.0-100.0) 05/02/17 02:20 MCH 33.3 pg (25.0-35.0) 05/02/17 02:20 MCHC 34.1 g/dL (31.0-37.0) 05/02/17 02:20 RDW 17.5 % (11.5-15.5) H 05/02/17 02:20 Plt Count 25 k/uL (150-450) L* D 05/02/17 02:20 Neutrophils % (Manual) 72.5 % 05/02/17 02:20 Band Neutrophils % 15.5 % 05/02/17 02:20 Lymphocytes % (Manual) 6.0 % 05/02/17 02:20 Monocytes % (Manual) 1.5 % 05/02/17 02:20 Metamyelocytes % 4.0 % 05/02/17 02:20 Myelocytes % 0.5 % 05/02/17 02:20 Neutrophils # (Manual) 3.6 k/uL (1.3-7.7) 05/02/17 02:20 Lymphocytes # (Manual) 0.2 k/uL (1.0-4.8) L 05/02/17 02:20 Monocytes # (Manual) 0.1 k/uL (0-1.0) 05/02/17 02:20 Nucleated RBCs 6 /100 WBC (0-0) H 05/02/17 02:20 Manual Slide Review Performed 05/02/17 02:20 Polychromasia Present 05/02/17 02:20 Poikilocytosis Slight 05/02/17 02:20 Anisocytosis Slight 05/02/17 02:20 Macrocytosis Slight 05/02/17 02:20 PT 11.6 sec (9.0-12.0) 05/02/17 02:20 INR 1.2 (<1.1) 05/02/17 02:20 APTT 21.0 sec (22.0-30.0) L 05/02/17 02:20 Sodium 135 mmol/L (137-145) L 05/02/17 02:20 Potassium 3.6 mmol/L (3.5-5.1) 05/02/17 02:20 Chloride 104 mmol/L (98-107) 05/02/17 02:20 Carbon Dioxide 23 mmol/L (22-30) 05/02/17 02:20 Anion Gap 8 mmol/L 05/02/17 02:20 BUN 20 mg/dL (9-20) 05/02/17 02:20 Creatinine 0.70 mg/dL (0.66-1.25) 05/02/17 02:20 Est GFR (MDRD) Af Amer >60 (>60 ml/min/1.73 sqM) 05/02/17 02:20 Est GFR (MDRD) Non-Af >60 (>60 ml/min/1.73 sqM) 05/02/17 02:20 Glucose 84 mg/dL (74-99) 05/02/17 02:20 POC Glucose (mg/dL) 97 mg/dL (75-99) 05/02/17 19:17 POC Glu Dry Sander ID 05/02/17 19:[address] Glu mg/dL 114 mg/dL 05/02/17 02:20 Hemoglobin A1c 5.6 % (4.2-6.1) 05/02/17 02:20 Plasma Lactic Acid Niko 2.5 mmol/L (0.7-2.0) H* 05/02/17 13:00 Calcium 8.2 mg/dL (8.4-10.2) L 05/02/17 02:20 Magnesium 1.5 mg/dL (1.6-2.3) L 05/02/17 13:00 Total Bilirubin 1.3 mg/dL (0.2-1.3) 05/02/17 02:20 AST 35 U/L (17-59) 05/02/17 02:20 ALT 54 U/L (21-72) 05/02/17 02:20 Alkaline Phosphatase 108 U/L (38-126) 05/02/17 02:20 Total Creatine Kinase 22 U/L (55-170) L 05/02/17 02:20 CK-MB (CK-2) <0.2 ng/mL (0.0-2.4) 05/02/17 02:20 CK-MB (CK-2) Rel Index 05/02/17 02:20 Troponin I <0.012 ng/mL (0.000-0.034) 05/02/17 02:20 Total Protein 5.0 g/dL (6.3-8.2) L 05/02/17 02:20 Albumin 2.7 g/dL (3.5-5.0) L 05/02/17 02:20 Cortisol 4 ug/dL 05/02/17 02:20 Urine Color Yellow 05/02/17 02:45 Urine Appearance Clear (Clear) 05/02/17 02:45 Urine pH 6.5 (5.0-8.0) 05/02/17 02:45 Ur Specific [place] 1.019 (1.001-1.035) 05/02/17 02:45 Urine Protein Trace (Negative) H 05/02/17 02:45 Urine Glucose (UA) Negative (Negative) 05/02/17 02:45 Urine Ketones Negative (Negative) 05/02/17 02:45 Urine Blood Negative (Negative) 05/02/17 02:45 Urine Nitrite Negative (Negative) 05/02/17 02:45 Urine Bilirubin Negative (Negative) 05/02/17 02:45 Urine Urobilinogen 6.0 mg/dL (<2.0) 05/02/17 02:45 Ur Leukocyte Esterase Negative (Negative) 05/02/17 02:45 Microbiology 05/02/17 02:45 Urine,Clean Catch Urine Culture - Preliminary Assessment and Plan (1) Lung cancer, primary, with metastasis from lung to other site Status: Acute (2) Febrile illness, acute Narrative/Plan: 51-year-old male who has a 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 He is status post extensive chemotherapy regimen as noted above. Currently on single agent Gemzar. His received his whole brain irradiation already. Patient now presents with fever without evidence of acute seizure. Probably statuses vaguely worse. His chest x-ray is worse with evidence of potential pneumonia related to his tumor which would have a postobstructive component. He has received chemotherapy and he does have a trend for leukopenia and has thrombocytopenia are ready. Penicillin ALLERGY is noted. Would not allow use of Zosyn. For potential postobstructive pneumonitis contemplation for meropenem, however with his seizure history and multiple seizure medications that could be difficulty with this combination. We'll continue cefepime and add clindamycin for now monitor closely. Cultures are process. Oncology is following and will help with growth factors as needed. As his fever improves his mental status may also improve a bit. Patient's is quite anxious and is comforted. Status: Acute (3) Thrombocytopenia Status: Acute
[2017-05-02] MEDS: DEXAMETHASONE 4 MG TAB PO SCH (22:40)
[2017-05-03] MEDS: MORPHINE SULFATE 4 MG/ML SYRINGE IV PRN ×4 (00:28→20:18)
[2017-05-03] MEDS: methylPREDNISolone SOD SUCCI 125 MG/2 ML VIAL IV SCH ×3 (00:48→12:33)
[2017-05-03] MEDS: CEFEPIME 2 GM in SODIUM CHLORIDE 0.9% 50 ML IVPB SCH ×3 (00:48→17:09)
[2017-05-03] MEDS: CLINDAMYCIN 600 MG in DEXTROSE 5% IN WATER 50 ML IVPB SCH ×4 (01:38→11:07)
[2017-05-03] MEDS: SODIUM CHLORIDE 0.9% 1,000 ML IV SCH ×3 (01:38→18:10)
[2017-05-03] MEDS ORDERED: CALCIUM CARBONATE 500 MG CHEWABLE PO PRN (01:45)
[2017-05-03] MEDS: 0.9% NACL WITH KCL 20 MEQ/L 1,000 ML IV SCH ×2 (02:21→11:08)
[2017-05-03 07:34] LABS: Glucose,Whole Blood 106 mg/dL (75-99)
[2017-05-03] MEDS: INSULIN LISPRO (humaLOG) 300 UNIT/3 ML VIAL SQ SCH ×3 (07:36→18:11)
[2017-05-03] MEDS: DEXAMETHASONE 4 MG TAB PO SCH (07:39)
[2017-05-03] MEDS: PANTOPRAZOLE 40 MG TABLET PO SCH (07:39)
[2017-05-03] MEDS: HYDROcodone/APAP 7.5-325MG 1 EACH TAB PO PRN (07:40)
[2017-05-03 07:43] LABS: Anion Gap 6 mmol/L; Blood Urea Nitrogen 11 mg/dL (9-20); Calcium 7.6 mg/dL (8.4-10.2); Carbon Dioxide 21 mmol/L (22-30); Chloride 107 mmol/L (98-107); Glucose 100 mg/dL (74-99); Magnesium 1.2 mg/dL (1.6-2.3); Non-African American GFR(MDRD) >60 (>60 ml/min/1.73 sqM); Phosphorous 2.8 mg/dL (2.5-4.5); Potassium 3.4 mmol/L (3.5-5.1); Sodium 134 mmol/L (137-145)
[2017-05-03 08:10] LABS: Anisocytosis Slight; CH 34.7; CHCM 34.6; HCT 27.5 % (39.0-53.0); HDW 3.57; HGB 9.2 gm/dL (13.0-17.5); Immature Gran Flag Moderate; MCH 33.6 pg (25.0-35.0); MCHC 33.3 g/dL (31.0-37.0); Macrocytosis Slight; Mean Platelet Volume 10.2; Poikilocytosis Slight; RBC 2.72 m/uL (4.30-5.90); RDW 17.5 % (11.5-15.5); WBC (Perox) 6.18
--- NOTE | 2017-05-03 08:43 | HP ---
DATE OF ADMISSION: CHIEF COMPLAINT: Fever, weakness and hypotension. HISTORY OF PRESENT ILLNESS: This 51-year-old gentleman with a past medical history of multiple medical problems including lung cancer with brain mets and brain surgery as well as the left upper lobe lung cancer being followed by Dr. Padgett and Dr. Ayoub in the outpatient setting, was noted to have severe weakness. The patient also had some fever. The patient also had some confusion. The patient noted to be hypotensive at 80/50 and patient was tachycardic also. The patient was taken to [facility] and admitted for further evaluation and treatment. A chest x-ray done today showed increase slight increase in the left upper lobe mass lesion as well as mild interstitial prominence and right Port-A-Cath was also noted. The patient was admitted for further evaluation and treatment. There is no history of any . Patient is mildly confused, unable to give a complete coherent history. Most of the history is taken by my discussion with the staff and as well as review of the chart also. The patient also had severe thrombocytopenia at this time and plasma lactic acid also elevated to 2.5. PAST MEDICAL HISTORY: History of squamous cell carcinoma of the lung with brain mets, history of seizure disorder, anxiety, claustrophobia. Medications prior to admission include home medications: 1. Ativan 4 mg q.h.s. p.r.n. 2. Hexadrol 4 mg p.o. b.i.d. 3. Keppra 1500 mg b.i.d. 4. Protonix 40 mg daily. 5. Hydrocodone 7.5 q.4 p.r.n. Allergies are PENICILLIN. FAMILY HISTORY: History of breast cancer. SOCIAL HISTORY: Previous history of smoking. No history of smoking or alcohol intake. REVIEW OF SYSTEMS: ENT: No diminished hearing or vision, otherwise as mentioned earlier. CARDIOVASCULAR: No angina or palpitations. RESPIRATORY: As mentioned earlier. GI: No nausea. : No dysuria. NERVOUS SYSTEM: No numbness or weakness. ALLERGY/IMMUNOLOGY: No asthma or hayfever. MUSCULOSKELETAL: As mentioned earlier. HEMATOLOGY/ONCOLOGY: No history of anemia. ENDOCRINE: No history of diabetes mellitus or hypothyroidism. CONSTITUTIONAL: As mentioned earlier. DERMATOLOGY: Negative. RHEUMATOLOGY: Negative. PSYCHIATRY: As mentioned earlier. PHYSICAL EXAMINATION: The patient is alert and oriented x3. Pulse 100, blood pressure 103/68, respirations 20, temperature 98 degrees, pulse ox 97% on 3 L. T-max 100.3. HEENT: Conjunctivae normal. Oral mucosa moist. NECK: No jugular venous distention. No carotid bruit. No lymph node enlargement. CARDIOVASCULAR: S1 and S2, muffled. No S3, no S4. RESPIRATORY: Breath sounds diminished at the bases. Bilateral scattered rhonchi and crackles. Expiratory wheezing also present. ABDOMEN: Soft, obese, nontender. No mass palpable. LEGS: No edema, no swelling. NERVOUS SYSTEM: Higher function as mentioned earlier. Moves all 4 limbs. No focal motor deficits. Mild diffuse weakness. LYMPHATICS: No lymphadenopathy of neck, axillae or groin. SKIN: Diffuse rash, petechial rash, possibly secondary thrombocytopenia present. Port-A-Cath on the right chest. JOINTS: No active deforming arthropathy. Labs are chest x-ray which was reviewed personally by me, showed evidence of right upper lobe mass lesion and bilateral lesions, possibly indicating possible pneumonia. Other labs are WBC 4.1, hemoglobin is 10, platelets are 25 and sodium 135. ASSESSMENT: 1. Fever, possibly sepsis secondary to bilateral pneumonia in immunosuppressed. 2. Squamous cell lung cancer of the left with the brain METs, status post brain surgery. 3. Hyponatremia. 4. Change in mental status, metabolic encephalopathy, acute on chronic. 5. Severe thrombocytopenia secondary to malignancy. 6. Anemia, normocytic anemia of chronic disease. 7. Increased plasma lactic acid from pneumonia and sepsis. 8. Hypomagnesemia. 9. Hypoalbuminemia with mild to moderate protein calorie malnutrition. 10. History of seizure disorder. 11. History of herniated discs. 12. History of stage IV lung cancer. 13. History of radiation treatment currently. 14. History of anxiety, not otherwise specified. 15. History of claustrophobia. 16. History of nicotine dependence. 17. FULL CODE. RECOMMENDATIONS AND DISCUSSION: This 51-year-old gentleman presented with multiple complex medical issues, we will monitor the patient closely. Continue the current medications. I recommend to continue the cefepime empirically. Continue the bronchodilators, empiric steroids will be given. Also recommend pulmonary and as well as infectious disease consultation and as well as follow up closely with Hematology/Oncology as well. The home medication will be continued. DVT prophylaxis. Guarded prognosis because of multiple complex medical issues. Further recommendations to follow. A copy of dictation forwarded to Dr. Ayoub who is the primary physician. ZULY
[2017-05-03] MEDS: IPRATROPIUM-ALBUTEROL 3 ML NEB INHALATION SCH ×4 (09:10→19:59)
[2017-05-03] MEDS ORDERED: Potassium Replacement Protocol 1 EACH MISC MISCELLANE PRN (10:19)
[2017-05-03] MEDS ORDERED: Magnesium Replacement Protocol 1 EACH MISC MISCELLANE PRN (10:19)
[2017-05-03 11:16] LABS: Add Differential Manual Differential
[2017-05-03 11:19] LABS: Myelocytes % 0.5 %; Nucleated Red Blood Cells 2 /100 WBC (0-0); Total Cells Counted 200
[2017-05-03 11:20] LABS: Manual Review Performed; Toxic Granulation Present; WBC 5.6 k/uL (3.8-10.6)
[2017-05-03 11:21] LABS: Glucose,Whole Blood 141 mg/dL (75-99)
[2017-05-03] MEDS ORDERED: POTASSIUM CHLORIDE 20 MEQ, LIDOCAINE 2% INJ 20 MG in SODIUM CHLORIDE 0.9% 100 ML IVPB SCH (12:00)
[2017-05-03] MEDS: MAGNESIUM SULFATE-D5W PMX 1 GM in DEXTROSE/WATER 1 100ML.BAG IVPB SCH ×3 (12:34→17:10)
[2017-05-03] MEDS: MULTIVITAMINS, THERA 1 EACH TAB PO SCH (12:34)
[2017-05-03] MEDS: POTASSIUM CHLORIDE ER 20 MEQ TAB.ER PO SCH ×2 (15:01→15:47)
[2017-05-03] MEDS: LORazepam 0.5 MG TAB PO PRN (15:52)
--- NOTE | 2017-05-03 16:07 | P.PN ---
Subjective Principal diagnosis: fever Pt seen today in follow up. He is feeling better then yesterday, no fevers, appetite is good, no nausea, breathing and cough stable. His family is at bedside. Objective - Vital Signs Vital signs: Vital Signs Temp 97.4 F L 05/03/17 15:00 Pulse 101 H 05/03/17 15:00 Resp 20 05/03/17 15:00 BP 101/64 05/03/17 15:00 Pulse Ox 90 L 05/03/17 15:00 Intake & Output 05/02/17 05/03/17 05/03/17 18:59 06:59 18:59 Intake Total 240 300 Output Total 900 200 475 Balance -660 -200 -175 Weight 82 kg 82 kg Intake: Intake, IV Titration 300 Amount Cefepime 2 gm In Sodium 100 Chloride 0.9% 50 ml @ 100 mls/hr IVPB Q8HR JAZLYN Rx# :[id number] Clindamycin 600 mg In 100 Dextrose 5% in Water 50 ml @ 100 mls/hr IVPB Q8HR JAZLYN Rx#:[id number] Magnesium Sulfate-D5w Pmx 100 1 gm In Dextrose/Water 1 100ml.bag @ 100 mls/hr IVPB Q1H JAZLYN Rx#: [id number] Oral 240 Output: Urine 900 200 475 Other: # Voids 1 3 2 - Constitutional Constitutional Comment(s): Cushingoid appearance General appearance: Present: cooperative, no acute distress - EENT Eyes: Present: anicteric sclerae ENT: Present: normal oropharynx - Respiratory Respiratory: bilateral: diminished - Cardiovascular Heart sounds: normal: S1, S2 - Peripheral edema leg Peripheral Edema: bilateral: Trace - Gastrointestinal General gastrointestinal: Present: normal bowel sounds, soft. Absent: absent bowel sounds, decreased bowel sounds, distended, hepatomegaly, hyperactive bowel sounds, organomegaly, rigid, scaphoid, splenomegaly, tenderness, umbilical hernia, ventral hernia - Integumentary Integumentary Comment(s): acne from steroids on shoulders and back Integumentary: Present: pale - Neurologic Neurologic Comment(s): Tremor in hands noted, generalized weakness, no unilateral deficit - Musculoskeletal Musculoskeletal: Present: generalized weakness, strength equal bilaterally - Psychiatric Psychiatric: Present: A&O x's 3 - Labs CBC & Chem 7: 05/03/17 07:08 05/03/17 07:08 Labs: Abnormal Lab Results - Last 24 Hours (Table) 05/03/17 05/03/17 05/03/17 Range/Units 07:08 07:08 07:27 RBC 2.72 L (4.30-5.90) m/uL Hgb 9.2 L (13.0-17.5) gm/dL Hct 27.5 L (39.0-53.0) % MCV 101.0 H (80.0-100.0) fL RDW 17.5 H (11.5-15.5) % Plt Count 31 L* (150-450) k/uL Lymphocytes # (Manual) 0.2 L (1.0-4.8) k/uL Nucleated RBCs 2 H (0-0) /100 WBC Sodium 134 L (137-145) mmol/L Potassium 3.4 L (3.5-5.1) mmol/L Carbon Dioxide 21 L (22-30) mmol/L Creatinine 0.58 L (0.66-1.25) mg/dL Glucose 100 H (74-99) mg/dL POC Glucose (mg/dL) 106 H (75-99) mg/dL Calcium 7.6 L (8.4-10.2) mg/dL Magnesium 1.2 L (1.6-2.3) mg/dL 05/03/17 Range/Units 11:19 RBC (4.30-5.90) m/uL Hgb (13.0-17.5) gm/dL Hct (39.0-53.0) % MCV (80.0-100.0) fL RDW (11.5-15.5) % Plt Count (150-450) k/uL Lymphocytes # (Manual) (1.0-4.8) k/uL Nucleated RBCs (0-0) /100 WBC Sodium (137-145) mmol/L Potassium (3.5-5.1) mmol/L Carbon Dioxide (22-30) mmol/L Creatinine (0.66-1.25) mg/dL Glucose (74-99) mg/dL POC Glucose (mg/dL) 141 H (75-99) mg/dL Calcium (8.4-10.2) mg/dL Magnesium (1.6-2.3) mg/dL Microbiology - Last 24 Hours (Table) 05/02/17 02:45 Urine Culture - Final Urine,Clean Catch 05/02/17 02:35 Blood Culture - Preliminary Blood No Growth after 24 hours 05/02/17 02:20 Blood Culture - Preliminary Blood No Growth after 24 hours Assessment and Plan (1) Febrile illness, acute Narrative/Plan: No growth from cultures so far, T max 101.2F overnight. Cont abx, continue current plan. Status: Acute (2) Brain metastases Narrative/Plan: Pt was due for f/u MRI on Sunday to evaluate brain mets and treatment. MRI has been ordered and Rad Onc consulted for review. Pt will continue on steroids Status: Acute (3) Squamous cell carcinoma lung Narrative/Plan: Pt is s/p 1 cycle of gemzar day 1& 8. CXR is the only imaging done at this time , only a slight interval increase was noted. There may be a component of pneumonia superimposed on tumor pt is doing better with abx. Plan is to continue to treat pneumonia, have Rad Onc evaluate brain imaging and plan for further treatment based on pt recovery. Discussed this with pt and family, they are agreeable with plan. Status: Chronic (4) Bicytopenia Narrative/Plan: Platelets and Hgb stable, no acute intervention Status: Acute
[2017-05-03 17:04] LABS: Glucose,Whole Blood 141 mg/dL (75-99)
--- NOTE | 2017-05-03 18:28 | CONS ---
DATE OF CONSULTATION: This patient is a 51-year-old male with a history of metastatic lung cancer. 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 The patient apparently developed fever and progressive weakness. He had confusion. He was brought in by EMS. The patient had a low blood pressure in the emergency room of 80/50 and a heart rate of 125. He was given some lactated Ringer's IV solution and seemed to improve somewhat. The patient is very, very confused, not able to give much of a history; not even sure why he is here. He did not know any of his doctors. The patient was seen by Dr. Padron in June 2016. No other complaints ( ). The patient's home medications include: 1. Xanax. 2. [place]. 3. Dronabinol. 4. Keppra. 5. Hexadrol. 6. Magnesium. 7. Protonix. ALLERGIES: PENICILLIN. Medical history is positive for: 1. Lung cancer with metastases. 2. Seizure disorder. 3. History of herniated disc. Surgical history includes: 1. Orthopedic surgery. 2. Left arm fracture. 3. Digits on the left hand injured requiring surgery. 4. Craniotomy for the metastatic lung cancer. SOCIAL HISTORY: Positive for previous tobacco use. Denies any alcohol. No illicit drug use. He smoked up until April 2016; started at the age of 16. Family history is positive for breast cancer, skin cancer, colon and testicular cancer. Review of systems is unreliable at best. The patient is very confused and weak, not even sure why he is here. Current vital signs are reviewed. Temperature 98.2, heart rate 101, respiratory rate 20, blood pressure 101/57, mean 71, 5-liter saturation 91%. Appears in no acute distress. HEENT examination is grossly unremarkable. Mucous membranes are dry. NECK: Supple. Full range of motion. Cardiovascular examination reveals regular rhythm and rate. Heart rate about 90. Lungs reveal a few scattered rhonchi. No wheezes. ABDOMEN: Soft. Bowel sounds are heard. Extremities are intact. No edema. Skin is pale. Neurologic examination could not be performed. Labs are reviewed. White count 5.6, hemoglobin 9.2, hematocrit 27.5, platelet count 31,000. Sodium 134, potassium 3.4, chloride 107, CO2 21. BUN and creatinine were 11 and 0.58. Lactic acid was 2.5. The rest of the labs look okay. Urine was negative. Chest x-ray shows left upper lung mass which is increasing in size. This is consistent with the patient's known history of lung neoplasm. The interstitium of the chest also seems a bit prominent, consistent with some interstitial edema. The rest of the chest x-ray is unremarkable. Patient's medications include cefepime and clindamycin. The patient has been seen by Infectious Disease. ASSESSMENT: 1. Generalized weakness secondary to severe and significant metastatic bronchogenic carcinoma with metastases to various locations. 2. Bicytopenia. 3. Hypotension. 4. Possible sepsis. 5. History of anorexia cachexia syndrome. 6. History of seizure disorder. 7. Previous craniotomy. PLAN: Overall prognosis is poor. The patient has metastatic ori-rkyix-opla lung cancer. The patient has been seen by Infectious Disease. Medications are reviewed. Patient is DNR. Will continue to follow.
[2017-05-03 21:01] LABS: Glucose,Whole Blood 139 mg/dL (75-99)
[2017-05-03] MEDS: ACETAMINOPHEN TAB 325 MG TAB PO PRN (22:35)
--- NOTE | 2017-05-03 23:29 | MR ---
EXAMINATION TYPE: MR brain wo/w con DATE OF EXAM: 05/03/2017 COMPARISON: 03/05/2017 HISTORY: Follow up from prior scans on 02/2017, 12/2016, and 11/2016 metastatic malignancy. TECHNIQUE: Multiplanar, multisequence images of the brain and brainstem is performed without and with IV contras t, utilizing 20 mL intravenous MultiHance . FINDINGS: There is a intra-axial 4.2 x 2.5 cm irregular enhancing mass at the left occipital lobe convexity. Th ere is slight enlargement of the occipital horn left lateral ventricle consistent with adjacent encep halomalacia. There is a 27 x 19 mm oval-shaped irregular enhancing area in the left posterior parieta l lobe at the kan-white matter junction. There is an adjacent posterior 10 mm area of decreased sign al on the T1 images without enhancement. There is a oval-shaped convexity 15 x 6 mm area of enhancement in the left posterior frontal lobe. Th ere is mild adjacent white matter edema. There is no midline shift. There is no significant surroundi ng edema. There is a 35 x 7 mm area of dural convexity enhancement in the left posterior temporal lob e. The brainstem appears intact. Sella turcica appears normal. There is intact corpus callosum. I see no evidence of acute cortical infarct.. On the T2 images there are patchy areas of increased signal and measure up to 1 cm in the kan-white matter junction of both cerebral hemispheres. This probably rel ates to chronic small vessel ischemia. IMPRESSION: There is a left posterior frontal lobe convexity lesion that appears slightly smaller kumar n last exam. The thickness was 10 mm and now is 6 mm. The adjacent white matter edema is unchanged. There is a left posterior parietal lesion with mild surrounding edema. The edema is stable. The lesio n is the same or slightly larger than last exam. The 10 mm adjacent lesion is smaller than previous e xam. There is a large left occipital lobe lesion adjacent to the lateral ventricle that appears stable. Left posterior parietal lesion I think is slightly smaller than older exam of 01/08/2017. I do not see any new lesion. Overall I do not see convincing evidence for progression of tumor.
[2017-05-04] MEDS: 0.9% NACL WITH KCL 20 MEQ/L 1,000 ML IV SCH ×3 (00:21→08:48)
[2017-05-04] MEDS: HYDROcodone/APAP 7.5-325MG 1 EACH TAB PO PRN (00:21)
[2017-05-04] MEDS: DEXAMETHASONE 4 MG TAB PO SCH ×2 (00:23→08:49)
[2017-05-04] MEDS: CLINDAMYCIN 600 MG in DEXTROSE 5% IN WATER 50 ML IVPB SCH ×6 (00:23→08:48)
[2017-05-04] MEDS: CEFEPIME 2 GM in SODIUM CHLORIDE 0.9% 50 ML IVPB SCH ×2 (00:27→10:23)
[2017-05-04] MEDS: INSULIN LISPRO (humaLOG) 300 UNIT/3 ML VIAL SQ SCH ×3 (00:39→12:50)
[2017-05-04] MEDS: SODIUM CHLORIDE 0.9% 1,000 ML IV SCH (02:20)
[2017-05-04] MEDS: LORazepam 0.5 MG TAB PO PRN (03:16)
[2017-05-04] MEDS ORDERED: ACETAMINOPHEN IV (For NPO) 1,000 MG in EMPTY BAG 1 BAG IVPB PRN (05:42)
[2017-05-04] MEDS: MORPHINE SULFATE 4 MG/ML SYRINGE IV PRN ×3 (05:47→13:09)
--- NOTE | 2017-05-04 06:06 | PN ---
DATE OF SERVICE: 05/03/2017 This 51-year-old gentleman who was admitted with fever and sepsis with bilateral pneumonia. He is being closely monitor. Sensorium is slightly improved at this time. Squamous cell carcinoma of the lung cancer was noted on the left with brain metastases. The patient is on broad-spectrum IV antibiotics. Infectious Disease and as well as Hematology/Oncology is following the patient closely. PAST MEDICAL HISTORY: Reviewed. REVIEW OF SYSTEMS: CARDIOVASCULAR: No angina, palpitations. RESPIRATORY SYSTEM: As mentioned earlier. GI: As mentioned earlier. : No dysuria. NERVOUS SYSTEM: No numbness or weakness. Current medications are reviewed and include: 1. Tylenol 650 q.6 p.r.n. 2. [place] 7.5 q.4 p.r.n. 3. DuoNeb q.i.d. and p.r.n. 4. Tums. 5. Cefepime 2 grams IV q.8. 6. Hexadrol 4 mg p.o. b.i.d. 7. Keppra 1500 mg p.o. b.i.d. 8. Ativan. 10. Protonix. 11. Restoril. PHYSICAL EXAMINATION: The patient is alert and oriented x2. Pulse is 101, blood pressure 101/64, respirations 20, temperature 97.4, pulse ox 90% on 5 L. HEENT: Conjunctivae normal. NECK: No jugular venous distention. CARDIOVASCULAR: S1 and S2, muffled. RESPIRATORY: Breath sounds diminished at the bases. A few scattered rhonchi and crackles. Expiratory wheezing also present. ABDOMEN: Soft, nontender. No mass palpable. LEGS: No edema, no swelling. NERVOUS SYSTEM: Higher function as mentioned, moves all 4 limbs. No focal motor deficits. LYMPHATICS: No lymphadenopathy of neck, axillae or groin. SKIN: No ulcers, rashes or bleeding. LABS: WBC 5.6, hemoglobin 9.2, MCV 101, platelets are 31. Sodium 134, potassium 3.4. Magnesium is 1.2. ASSESSMENT: 1. Fever, possibly sepsis secondary to bilateral pneumonia, possibly gram-negative in an immunosuppressed patient. 2. Squamous cell lung cancer on the left with brain metastasis, status post brain surgery. 3. Hyponatremia. 4. Change in mental status, metabolic encephalopathy, acute on chronic, multifactorial. 5. Severe thrombocytopenia secondary to malignancy. 6. Anemia of normocytic anemia of chronic disease. 7. Increased plasma lactic acid from pneumonia and sepsis, present on admission. 8. Hypomagnesemia. 9. Hypoalbuminemia with mild to moderate protein calorie malnutrition. 10. Seizure disorder. 11. Herniated disc. 12. History of stage IV lung cancer. 13. History of radiation treatment currently. 14. History of anxiety, not otherwise specified. 15. History of claustrophobia. 16. History of nicotine dependence. 17. FULL CODE. RECOMMENDATIONS AND DISCUSSION: Recommend to continue current medications, continue symptomatic treatment. Otherwise, broad-spectrum IV antibiotic, bronchodilators and. Guarded prognosis because of multiple complex medical issues. Further recommendations to follow. MTDD
[2017-05-04] MEDS: IPRATROPIUM-ALBUTEROL 3 ML NEB INHALATION SCH ×2 (07:19→11:21)
[2017-05-04 07:37] LABS: Glucose,Whole Blood 85 mg/dL (75-99)
[2017-05-04 08:02] VITALS: BP 160/67; PULSE 137; RESP 24; TEMP 102.4
[2017-05-04] MEDS: LORazepam 2 MG/ML SYRINGE IV PRN ×2 (08:22→15:02)
[2017-05-04] MEDS: PANTOPRAZOLE 40 MG TABLET PO SCH (08:49)
[2017-05-04 08:55] LABS: Anion Gap 7 mmol/L; Blood Urea Nitrogen 11 mg/dL (9-20); Calcium 8.4 mg/dL (8.4-10.2); Carbon Dioxide 18 mmol/L (22-30); Chloride 109 mmol/L (98-107); Glucose 88 mg/dL (74-99); Magnesium 1.5 mg/dL (1.6-2.3); Non-African American GFR(MDRD) >60 (>60 ml/min/1.73 sqM); Potassium 3.8 mmol/L (3.5-5.1); Sodium 134 mmol/L (137-145)
[2017-05-04 08:57] LABS: Anisocytosis Slight; CH 34.2; CHCM 35.1; HCT 29.8 % (39.0-53.0); HDW 3.85; Immature Gran Flag Marked; MCH 32.9 pg (25.0-35.0); MCHC 33.6 g/dL (31.0-37.0); MCV 98.1 fL (80.0-100.0); Macrocytosis Slight; Mean Platelet Volume 9.2; Poikilocytosis Slight; RBC 3.04 m/uL (4.30-5.90); RDW 17.5 % (11.5-15.5)
[2017-05-04 10:36] LABS: Add Differential Manual Differential
[2017-05-04 10:42] LABS: Manual Review Performed; Metamyelocytes % 3.5 %; Myelocytes % 2.5 %; Nucleated Red Blood Cells 10 /100 WBC (0-0); Total Cells Counted 200; WBC 4.5 k/uL (3.8-10.6)
[2017-05-04 10:44] LABS: Polychromasia Present
--- NOTE | 2017-05-04 12:34 | P.CONS ---
History of Present Illness - Reason for Consult Consult date: 05/03/17 confusion, history brain metastases Requesting physician: Nadeem Ramirez - Chief Complaint dyspnea, confusion - History of Present Illness 51 -year-old male with a history of metastatic non-small cell lung cancer with disease involving the brain, liver, and lung. He initially had a large left occipital lobe metastasis resected and underwent postoperative radiosurgery to the resection cavity in July of 2016. The patient subsequently underwent single fraction radiosurgery to a small frontal lobe metastases in August of 2016. Unfortunately, he subsequently developed multifocal ADULT MANAGER progression and underwent a course of whole brain radiation to the dose of 30 [place] finishing January 25, 2017. The patient was recently hospitalized with fever, confusion and dyspnea. He was diagnosed with a pneumonia, and started on antibiotics. There was some concern that his confusion may be secondary to progression of his brain metastasis. Patient underwent a repeat MRI of the brain on May 03, 2017, which revealed no significant changes. Unfortunately, the patient's respiratory status has continued to decline. At the time of my visit this morning, the patient's family is meeting with hospice care. The patient has not alert, and is currently on a BiPAP. Review of Systems ROS unobtainable: due to mental status Past Medical History Past Medical History: Cancer, Seizure Disorder, Skin Disorder Additional Past Medical History / Comment(s): herniated disc in neck, lung Ca with mets to brain, kidney and lymph node in chest- stage IV. Diagnosed 04/27, currently getting radiation tx History of Any Multi-Drug Resistant Organisms: None Reported Past Surgical History: Orthopedic Surgery Additional Past Surgical History / Comment(s): left arm fx, digits on left hand- injury required surgery, craniotomy 06/12/16 Past Anesthesia/Blood Transfusion Reactions: No Reported Reaction Additional Psychological History / Comment(s): . 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 No travels. Pet dog and cat in the home they are not new Smoking Status: Former smoker - Past Family History Father Family Medical History: Cancer Additional Family Medical History / Comment(s): Skin CA Mother History Unknown: Yes Family Medical History: Cancer Additional Family Medical History / Comment(s): breast Brother(s) Family Medical History: Cancer Additional Family Medical History / Comment(s): colon, testicular Medications and Allergies Home Medications Medication Instructions Recorded Confirmed Type Hydrocodone/Acetaminophen [[place] 1 tab PO Q4HR PRN 07/02/16 05/02/17 History 7.5-325] levETIRAcetam [Keppra] 1,500 mg PO Q12H 12/23/16 05/02/17 History Dexamethasone [Hexadrol] 4 mg PO BID 02/26/17 05/02/17 History Pantoprazole Sodium [Protonix] 40 mg PO DAILY 02/26/17 05/02/17 History LORazepam [Ativan] 4 mg PO HS PRN 05/02/17 05/02/17 History Allergies Allergy/AdvReac Type Severity Reaction Status Date / Time Penicillins Allergy Unknown Verified 05/02/17 08:20 Childhood Physical Exam Vitals: Vital Signs Temp Pulse Pulse Pulse Resp BP Pulse Ox 05/04/17 07:30 102.4 F H 137 H 24 160/67 90 L 05/04/17 05:45 101.8 F H 121 H 23 116/57 91 L 05/04/17 00:00 130 H 99 26 H 05/03/17 23:03 99.6 F 130 H 26 H 94/58 94 L 05/03/17 22:50 100.3 F H 120 H 26 H 91/45 70 L 05/03/17 22:45 100.1 F H 107 H 22 97/68 89 L 05/03/17 20:14 106 H 05/03/17 20:00 106 H 05/03/17 16:53 101 H 99 05/03/17 16:11 100 05/03/17 16:02 100 05/03/17 15:00 97.4 F L 101 H 20 101/64 90 L 05/03/17 13:43 108 H 05/03/17 13:33 110 H Intake and Output 05/03/17 05/04/17 05/04/17 22:59 06:59 14:59 Intake Total 300 750 Output Total 250 Balance 50 750 Intake: Intake, IV Titration 300 750 Amount Cefepime 2 gm In Sodium 100 Chloride 0.9% 50 ml @ 100 mls/hr IVPB Q8HR JAZLYN Rx# :[id number] Clindamycin 600 mg In 100 100 Dextrose 5% in Water 50 ml @ 100 mls/hr IVPB Q8HR JAZLYN Rx#:[id number] Magnesium Sulfate-D5w Pmx 100 200 1 gm In Dextrose/Water 1 100ml.bag @ 100 mls/hr IVPB Q1H JAZLYN Rx#: [id number] Sodium Chloride 0.9% 1, 450 000 ml @ 125 mls/hr IV . Q8H JAZLYN Rx#:[id number] Output: Urine 250 Other: Voiding Method Urinal Urinal # Voids 2 3 Weight 82 kg - Constitutional General appearance: average body habitus, no acute distress - Respiratory Coarse breath sounds bilaterally. - Cardiovascular Rhythm: regular - Gastrointestinal General gastrointestinal: no tenderness - Integumentary Integumentary: no calor, no jaundiced - Psychiatric Patient is not responsive to name, somnolent. Results CBC & Chem 7: 05/04/17 08:22 05/04/17 08:22 Labs: Abnormal Lab Results - Last 24 Hours (Table) 05/03/17 05/03/17 05/04/17 Range/Units 17:02 20:59 08:22 RBC 3.04 L (4.30-5.90) m/uL Hgb 10.0 L (13.0-17.5) gm/dL Hct 29.8 L (39.0-53.0) % RDW 17.5 H (11.5-15.5) % Plt Count 42 L* (150-450) k/uL Lymphocytes # (Manual) 0.2 L (1.0-4.8) k/uL Nucleated RBCs 10 H (0-0) /100 WBC Sodium (137-145) mmol/L Chloride (98-107) mmol/L Carbon Dioxide (22-30) mmol/L Creatinine (0.66-1.25) mg/dL POC Glucose (mg/dL) 141 H 139 H (75-99) mg/dL Magnesium (1.6-2.3) mg/dL 05/04/17 Range/Units 08:22 RBC (4.30-5.90) m/uL Hgb (13.0-17.5) gm/dL Hct (39.0-53.0) % RDW (11.5-15.5) % Plt Count (150-450) k/uL Lymphocytes # (Manual) (1.0-4.8) k/uL Nucleated RBCs (0-0) /100 WBC Sodium 134 L (137-145) mmol/L Chloride 109 H (98-107) mmol/L Carbon Dioxide 18 L (22-30) mmol/L Creatinine 0.60 L (0.66-1.25) mg/dL POC Glucose (mg/dL) (75-99) mg/dL Magnesium 1.5 L (1.6-2.3) mg/dL Microbiology - Last 24 Hours (Table) 05/02/17 02:35 Blood Culture - Preliminary Blood No Growth after 48 hours 05/02/17 02:20 Blood Culture - Preliminary Blood No Growth after 48 hours 05/02/17 02:45 Urine Culture - Final Urine,Clean Catch Chest x-ray: report reviewed, image reviewed MRI - head: report reviewed, image reviewed Assessment and Plan (1) Lung cancer, primary, with metastasis from lung to other site Status: Acute (2) Brain metastases Status: Acute (3) Change in mental status Status: Acute Plan: I spoke to the patient's , as well as the rest of his family. I explained, there has been no progression of his intracranial disease. Unfortunately, the patient's respiratory status has worsened. The patient's expressed a desire to make her hospice care. I discussed that I felt this was appropriate at this time. The patient is currently on third line chemotherapy, and is unlikely to make significant improvements despite maximal supportive care. The patient's expressed understanding of our recommendations. At the end of our consultation, the hospice service representative had showed up to meet with the family. Time with Patient: Greater than 30
[2017-05-04] MEDS: MULTIVITAMINS, THERA 1 EACH TAB PO SCH (12:50)
--- NOTE | 2017-05-04 17:25 | PN ---
DATE OF SERVICE: 05/04/2017 This 51-year-old gentleman who was admitted with a fever and sepsis and bilateral pneumonia also had change in mental status. Patient had taken a turn for the worse during the night and the patient needed BiPAP. Patient is fairly hypoxemic. The patient also had a brain MRI which showed multiple lesions. Dr. Montesinos and multiple consultants are following the patient closely. The family is also thinking about the possibility of NO CODE, NO CPR and comfort measures, also. Past medical history reviewed. Review of systems could not be taken. The patient is sedated. Medications are reviewed which include: 1. Tylenol. 2. [place]. 3. Antibiotics. 4. DuoNeb. 5. Xanax. 6. TUMS. 7. Cefepime. 8. Vancomycin. 9. Hexadrol. 10. Decadron. 11. Solu-Medrol. PHYSICAL EXAMINATION: Patient is stuporous. Pulse is 80, blood pressure 120/80, respiration 20, temperature normal. HEENT: Conjunctivae normal. Oral mucosa moist. NECK: No jugular venous distention. No carotid bruit. No lymph node enlargement. CARDIOVASCULAR SYSTEM: S1, S2 muffled. RESPIRATORY SYSTEM: Breath sounds diminished at the bases. A few scattered rhonchi and crackles present. Expiratory wheezing also present. ABDOMEN: Soft, nontender. LEGS: No edema. No swelling. NERVOUS SYSTEM: The patient is stuporous at this time. BiPAP is present. Labs are reviewed. ASSESSMENT: 1. Fever, possible sepsis secondary to bilateral pneumonia, possibly Gram-negative pneumonia in an immunocompromised patient with acute hypoxic respiratory failure. 2. Change in mental status, metabolic encephalopathy, acute on chronic. 3. Squamous cell carcinoma on the left with of brain metastases, status post brain surgery. 4. Hyponatremia. 5. Severe thrombocytopenia secondary to malignancy. 6. Anemia, normocytic; anemia of chronic disease. 7. Increased plasma lactic acid from pneumonia and sepsis, present on admission. 8. Hypomagnesemia. 9. Hypoalbuminemia with mild to moderate protein-calorie malnutrition. 10. Seizure disorder. 11. Herniated disc history. 12. History of stage IV lung cancer. 13. History of radiation treatment currently. 14. Anxiety not otherwise specified. 15. History of claustrophobia. 16. History of nicotine dependence. 17. FULL CODE. RECOMMENDATIONS AND DISCUSSION: In this 51-year-old gentleman who presented with multiple complex medical issues, we will monitor the patient closely, continue the current medications, continue with symptomatic treatment. Otherwise, I had a detailed discussion with the family at the bedside, and at this time the family would like to consider NO CODE, NO CPR, NO VENT and possible hospice, also. Discussed with Dr. Montesinos, who agrees with the diagnostic and prognostic implications and the extremely guarded nature of the patient's disease. Closely follow with Hematology/Oncology. Further recommendations to follow. Hospice will be consulted for information and possible transfer. ZULY
== END 2017-05-04 15:11 | disposition home or self-care (01) | DRG 871 ==
LOC: EC 02:16 → SUPCPDRO 02:16 → 5MS5E 04:32 → 5ONC 13:05
PROVIDERS: ADMIT Hospitalist; ATTEND Hospitalist
DX: A41.9 Sepsis, unspecified organism (principal); G93.41 Metabolic encephalopathy; J96.01 Acute respiratory failure with hypoxia; J18.9 Pneumonia, unspecified organism; E44.0 Moderate protein-calorie malnutrition; L89.322 Pressure ulcer of left buttock, stage 2; D70.1 Agranulocytosis secondary to cancer chemotherapy; C77.1 Secondary and unspecified malignant neoplasm of intrathoracic lymph nodes; C78.7 Secondary malignant neoplasm of liver and intrahepatic bile duct; C79.00 Secondary malignant neoplasm of unspecified kidney and renal pelvis; C34.90 Malignant neoplasm of unspecified part of unspecified bronchus or lung; C79.31 Secondary malignant neoplasm of brain; E87.1 Hypo-osmolality and hyponatremia; E83.42 Hypomagnesemia; D69.59 Other secondary thrombocytopenia; D63.8 Anemia in other chronic diseases classified elsewhere; F40.240 Claustrophobia; G40.909 Epilepsy, unspecified, not intractable, without status epilepticus; T45.1X5A Adverse effect of antineoplastic and immunosuppressive drugs, initial encounter; F41.9 Anxiety disorder, unspecified; E86.0 Dehydration; M50.20 Other cervical disc displacement, unspecified cervical region; Z87.891 Personal history of nicotine dependence; Z88.0 Allergy status to penicillin; Z79.899 Other long term (current) drug therapy; Z68.24 Body mass index [BMI] 24.0-24.9, adult; Z80.0 Family history of malignant neoplasm of digestive organs; Z80.3 Family history of malignant neoplasm of breast; Z80.43 Family history of malignant neoplasm of testis; Z80.8 Family history of malignant neoplasm of other organs or systems
CPT/HCPCS: 36415; 70553; 71020; 80048; 80053; 80177; 81003; 82533; 82550; 82553; 83036; 83605; 83735; 84100; 84484; 85025; 85610; 85730; 87040; 87086; 93005; 94640; 94660; 96361; 96365; 96366; 96367; 96375; 99285

== ENCOUNTER 2017-05-04 15:14 | Inpatient (IN) | payer OTHER ==
[2017-05-04 16:24] VITALS: BMI 24.4
[2017-05-04] MEDS: LORazepam 2 MG/ML SYRINGE IV PRN ×2 (17:20→20:04)
[2017-05-04] MEDS: MORPHINE SULFATE (100 MG/2 ML) 100 MG in SODIUM CHLORIDE 0.9% 100 ML IV SCH (17:21)
[2017-05-04] MEDS: SCOPOLAMINE 1.5MG/72HR PATCH TRANSDERM SCH (17:55)
[2017-05-04] MEDS: ATROPINE OPHTH SOLN 1% 5ML BTL BOTH EYES SCH ×2 (17:55→20:14)
[2017-05-05] MEDS: MORPHINE SULFATE (100 MG/2 ML) 100 MG in SODIUM CHLORIDE 0.9% 100 ML IV SCH (05:20)
[2017-05-05] MEDS: ATROPINE OPHTH SOLN 1% 5ML BTL BOTH EYES SCH ×2 (09:23→11:56)
[2017-05-05] MEDS: SCOPOLAMINE 1.5MG/72HR PATCH TRANSDERM SCH (10:21)
[2017-05-05] MEDS: LORazepam 2 MG/ML SYRINGE IV PRN (13:13)
--- NOTE | 2017-05-06 12:45 | DS ---
DATE OF ADMISSION: 05/04/2017 DATE OF DISCHARGE: 05/05/2017 PRIMARY CAUSE OF : Squamous cell lung cancer, on the left with brain metastases. OTHER DIAGNOSES: 1. Fever with possible sepsis secondary to bilateral pneumonia, possibly gram-negative, anemia, with acute hypoxic respiratory failure. 2. Change in mental status, metabolic encephalopathy, acute on chronic. Multifactorial. 3. Hyponatremia. 4. Severe thrombocytopenia secondary to malignancy. 5. Anemia, normocytic anemia of chronic disease. 6. Increased plasma lactic acid from pneumonia and sepsis present on admission. 7. Hypomagnesemia. 8. Hypoalbuminemia with mild to moderate protein calorie malnutrition. 9. History of seizure disorder. 10. History of herniated disc. 11. History of stage IV lung cancer. 12. History of radiation treatment currently. 13. Anxiety, not otherwise specified. 14. History of claustrophobia. 15. History of nicotine dependence. 16. NO CODE, NO CPR. NO VENT. 17. Hospice care. HISTORY OF PRESENT ILLNESS: This 51 -year-old gentleman with a past medical history of multiple medical problems being followed Dr. Ayoub and hematology/oncology team was admitted with fever and sepsis and had features of pneumonia. The patient was treated IV antibiotics, but the patient condition worsened. Patient developed acute hypoxic respiratory failure and the patient was started on BiPAP but; however discussion was done with the family and the patient. This patient has significant disease with METS involving the brain and lungs as well. The family decided to go with hospice care. Dr. Montesinos also suggested hospice care. Hospice care was continued and the patient succumbed to his illness, above mentioned illnesses. The patient's condition appeared to be guarded throughout the hospitalization, which was discussed with family on multiple occasions. Please refer to the multiple progress notes, staff notes and consultation notes for further details.
== END 2017-05-05 15:20 | disposition expired | DRG 180 ==
LOC: 5ONC 15:14
PROVIDERS: ADMIT Hospitalist; ATTEND Hospitalist
PROC: 0T9B70Z Drainage of Bladder with Drainage Device, Via Natural or Artificial Opening (ICD-10-PCS; principal; 2017-05-04)
DX: C34.92 Malignant neoplasm of unspecified part of left bronchus or lung (principal); J96.01 Acute respiratory failure with hypoxia; A41.9 Sepsis, unspecified organism; G93.41 Metabolic encephalopathy; J18.9 Pneumonia, unspecified organism; C79.31 Secondary malignant neoplasm of brain; E44.0 Moderate protein-calorie malnutrition; E87.1 Hypo-osmolality and hyponatremia; E87.2 Acidosis; Z51.5 Encounter for palliative care; D69.59 Other secondary thrombocytopenia; E83.42 Hypomagnesemia; Z66 Do not resuscitate; I95.9 Hypotension, unspecified; R00.0 Tachycardia, unspecified; G40.909 Epilepsy, unspecified, not intractable, without status epilepticus; D63.8 Anemia in other chronic diseases classified elsewhere; E88.09 Other disorders of plasma-protein metabolism, not elsewhere classified; R53.1 Weakness; R50.9 Fever, unspecified; F40.240 Claustrophobia; F41.9 Anxiety disorder, unspecified; Z88.0 Allergy status to penicillin; Z68.24 Body mass index [BMI] 24.0-24.9, adult; Z79.891 Long term (current) use of opiate analgesic; Z79.899 Other long term (current) drug therapy; Z71.3 Dietary counseling and surveillance; Z87.891 Personal history of nicotine dependence; Z92.3 Personal history of irradiation; Z80.3 Family history of malignant neoplasm of breast; Z95.828 Presence of other vascular implants and grafts
CPT/HCPCS: 94660